=== PATIENT | male | born 1950 | race Caucasian/White ===

== ENCOUNTER 2018-12-05 20:09 | Emergency (ER) | payer OTHER ==
[2018-12-05] MEDS ORDERED: MORPHINE 4 MG/ML SYR ONE (20:32)
[2018-12-05] MEDS ORDERED: ONDANSETRON 4 MG/2 ML VIAL ONE (20:32)
[2018-12-05] MEDS ORDERED: MAGNE/ALUM HYDROXD 30 ML UCUP ONE (20:48)
[2018-12-05] MEDS ORDERED: FENTANYL CITR 100 MCG/2 ML ONE (20:55)
[2018-12-05 20:59] LABS: Absolute Lymphocytes (CBC) 2.5 K/uL (0.7-4.9); Basophils % 1.2 % (0-1.3); Hematocrit 49.8 % (39.6-49.0); Lymphocytes % 22.8 % (15.3-44.8); MPV 8.6 fL (7.6-11.3); RBC Red Blood Cell Count 5.33 M/uL (4.33-5.43)
[2018-12-05 21:00] LABS: Protime INR 0.97
--- NOTE | 2018-12-05 21:09 | RAD REPORT ---
EXAM DESCRIPTION: Ramya Single View12/05/2018 8:54 pm CLINICAL HISTORY: Chest pain COMPARISON: 2009 FINDINGS: The lungs appear clear of acute infiltrate. The heart is mildly enlarged IMPRESSION: No acute abnormalities displayed
[2018-12-05 21:30] LABS: ALT/SGPT 34 U/L (12-78); AST/SGOT 24 U/L (15-37); Albumin 4.3 g/dL (3.4-5.0); Alkaline Phosphatase 113 U/L (45-117); Amylase Level 69 U/L (25-115); BUN Blood Urea Nitrogen 20 mg/dL (7-18); Bicarbonate 23 mmol/L (21-32); Bilirubin Direct 0.2 mg/dL (0-0.2); Bilirubin Total 0.7 mg/dL (0.2-1.0); Glucose Level 109 mg/dL (74-106); Lipase 168 U/L (73-393); Magnesium 2.2 mg/dL (1.8-2.4); NT PRO-BNP 164 pg/mL (<125); Potassium 3.6 mmol/L (3.5-5.1); Protein, Total 7.6 g/dL (6.4-8.2); Sodium Level 141 mmol/L (136-145); Troponin (Emerg Dept Use Only) < 0.02 ng/mL (0.0-0.045)
[2018-12-05] MEDS ORDERED: TAMSULOSIN 0.4 MG SR CAP ONE (22:12)
[2018-12-05] MEDS ORDERED: KETOROLAC 30 MG/ML INJ ONE (22:12)
--- NOTE | 2018-12-05 23:06 | ER ---
Nurse's Notes [facility] Name: Cedric Cortez Age: 68 yrs Sex: Male : 1950 Arrival Date: 12/05/2018 Time: 20:15 Bed 5 Private MD: Diagnosis: Calculus of lower urinary tract, unspecified Presentation: 12/05 20:15 Presenting complaint: Patient states: about two hours ago I got a sudden severe pain in la1 my right flank area. Transition of care: patient was not received from another setting of care. Onset of symptoms was December 05, 2018. Risk Assessment: Do you want to hurt yourself or someone else? Patient reports no desire to harm self or others. Initial Sepsis Screen: Does the patient meet any 2 criteria? No. Patient's initial sepsis screen is negative. Does the patient have a suspected source of infection? No. Patient's initial sepsis screen is negative. Care prior to arrival: None. 20:15 Method Of Arrival: Wheelchair la1 20:15 Acuity: RAJANI 2 la1 Historical: - Allergies: 20:16 No Known Allergies; la1 - PMHx: 20:16 Chronic pain; Hyperlipidemia; Hypertension; bph; la1 - Immunization history:: Adult Immunizations up to date. - Social history:: Smoking status: Patient uses tobacco products, smokes one pack cigarettes per day. - Ebola Screening: : No symptoms or risks identified at this time. Screenin:27 Abuse screen: Denies threats or abuse. Nutritional screening: No deficits noted. jd3 Tuberculosis screening: No symptoms or risk factors identified. Fall Risk Ambulatory Aid- None/Bed Rest/Nurse Assist (0 pts). Gait- Normal/Bed Rest/Wheelchair (0 pts) Mental Status- Oriented to own ability (0 pts). Total Ngo Fall Scale indicates No Risk (0-24 pts). Assessment: 20:20 General: Appears in no apparent distress. uncomfortable, Behavior is calm, cooperative, jd3 appropriate for age. Pain: Complains of pain in right low back Quality of pain is described as sharp. Neuro: Level of Consciousness is awake, alert, obeys commands, Oriented to person, place, time, situation. Cardiovascular: Capillary refill < 3 seconds Patient's skin is warm and dry. Respiratory: Airway is patent Respiratory effort is even, unlabored, Respiratory pattern is regular, symmetrical, Denies cough, shortness of breath. GI: Reports nausea. : No signs and/or symptoms were reported regarding the genitourinary system. EENT: No signs and/or symptoms were reported regarding the EENT system. Derm: Skin is intact, Skin is dry, Skin is normal, Skin temperature is warm. Musculoskeletal: Circulation, motion, and sensation intact. Range of motion: intact in all extremities. Vital Signs: 20:16 Pulse 66; Resp 16; Temp 97.6; Pulse Ox 98% on R/A; Weight 97.98 kg; Height 5 ft. 11 in. la1 (180.34 cm); Pain 10/10; 20:19 BP 200 / 120; la1 22:00 BP 179 / 101; Pulse 59; Resp 15; Pulse Ox 96% on R/A; lp1 23:28 BP 158 / 82; Pulse 62; Resp 18 S; Pulse Ox 100% on R/A; jd3 20:16 Body Mass Index 30.13 (97.98 kg, 180.34 cm) la1 ED Course: 20:15 Patient arrived in ED. ag3 20:16 Triage completed. la1 20:17 Arm band placed on left wrist. la1 20:21 Jc Alva MD is Attending Physician. tw4 20:40 Initial lab(s) drawn, by me, sent to lab. Inserted saline lock: 20 gauge in right fc antecubital area, using aseptic technique. Blood collected. 20:43 Josh Benoit, CISCO is Primary Nurse. jd3 20:54 XRAY Chest (1 view) In Process Unspecified. EDMS 21:11 CT completed. Patient tolerated procedure well. Patient moved back from CT. vm2 21:19 CT Stone Protocol In Process Unspecified. EDMS 23:04 Sanchez Desouza MD is Referral Physician. tw4 23:27 Patient has correct armband on for positive identification. Placed in gown. Bed in low jd3 position. Call light in reach. Side rails up X 1. Adult w/ patient. 23:27 No provider procedures requiring assistance completed. IV discontinued, intact, jd3 bleeding controlled, No redness/swelling at site. Pressure dressing applied. Administered Medications: 20:43 Drug: morphine 4 mg {Note: RASS score of 1..} Route: IVP; Site: right antecubital; jd3 21:00 Follow up: Response: Pain is unchanged, physician notified; RASS: Restless (+1) jd3 20:43 Drug: Zofran 4 mg Route: IVP; Site: right antecubital; jd3 21:00 Follow up: Response: No adverse reaction jd3 20:59 Drug: fentaNYL (PF) 50 mcg {Note: RASS score of 1..} Route: IVP; Site: right jd3 antecubital; 21:45 Follow up: Response: No adverse reaction; RASS: Alert and Calm (0) jd3 22:18 Drug: Flomax 0.4 mg Route: PO; jd3 23:28 Follow up: Response: No adverse reaction jd3 22:18 Drug: TORadol 30 mg Route: IVP; Site: right antecubital; jd3 23:28 Follow up: Response: No adverse reaction jd3 Outcome: 23:05 Discharge ordered by . tw4 23:27 Discharged to home ambulatory, with family. jd3 23:27 Condition: stable 23:27 Discharge instructions given to patient, family, Instructed on discharge instructions, follow up and referral plans. medication usage, Demonstrated understanding of instructions, follow-up care, medications, Prescriptions given X 3. 23:29 Patient left the ED. jd3 Signatures: Dispatcher [employer] EDMS Leonarda Ritter, RN Aspen Cox RN RN lp1 Vega Vela RN RN [email or web address] Karla Avina Jonathon, RN RN jd3 Jc Alva MD MD tw4 Mily Orozco ag3 Corrections: (The following items were deleted from the chart) 21:00 20:59 fentaNYL (PF) 50 mcg IVP in right antecubital jd3 jd3
--- NOTE | 2018-12-05 23:06 | EDPHYS ---
Physician Documentation [facility] Name: Cedric Cortez Age: 68 yrs Sex: Male : 1950 Arrival Date: 12/05/2018 Time: 20:15 Bed 5 Private MD: ED Physician Jc Alva HPI: 12/05 20:41 This 68 yrs old Male presents to ER via Wheelchair with complaints of Back tw4 Pain. 20:41 The patient complains of pain in the right low back. The pain radiates to the right low tw4 back. Onset: The symptoms/episode began/occurred today. Modifying factors: The symptoms are alleviated by nothing. the symptoms are aggravated by nothing. Severity of pain: At its worst the pain was moderate in the emergency department the pain is unchanged. The patient has not experienced similar symptoms in the past. Historical: - Allergies: 20:16 No Known Allergies; la1 - PMHx: 20:16 Chronic pain; Hyperlipidemia; Hypertension; bph; la1 - Immunization history:: Adult Immunizations up to date. - Social history:: Smoking status: Patient uses tobacco products, smokes one pack cigarettes per day. - Ebola Screening: : No symptoms or risks identified at this time. ROS: 20:41 Constitutional: Negative for fever, chills, and weight loss, Eyes: Negative for injury, tw4 pain, redness, and discharge, Cardiovascular: Negative for chest pain, palpitations, and edema, Respiratory: Negative for shortness of breath, cough, wheezing, and pleuritic chest pain, Abdomen/GI: Negative for abdominal pain, nausea, vomiting, diarrhea, and constipation, MS/Extremity: Negative for injury and deformity, Skin: Negative for injury, rash, and discoloration, Neuro: Negative for headache, weakness, numbness, tingling, and seizure. 20:41 Back: Positive for pain at rest, flank pain, on the right, Negative for injury or acute deformity, decreased range of motion, radiated pain. Exam: 20:41 Head/Face: Normocephalic, atraumatic. Chest/axilla: Normal chest wall appearance and tw4 motion. Nontender with no deformity. No lesions are appreciated. Cardiovascular: Regular rate and rhythm with a normal S1 and S2. No gallops, murmurs, or rubs. Normal PMI, no JVD. No pulse deficits. Respiratory: Lungs have equal breath sounds bilaterally, clear to auscultation and percussion. No rales, rhonchi or wheezes noted. No increased work of breathing, no retractions or nasal flaring. 20:41 Constitutional: The patient appears in obvious distress, moderately distressed, in obvious pain, uncomfortable. 20:41 Back: CVA tenderness, that is moderate, is noted on the right. Vital Signs: 20:16 Pulse 66; Resp 16; Temp 97.6; Pulse Ox 98% on R/A; Weight 97.98 kg; Height 5 ft. 11 in. la1 (180.34 cm); Pain 10/10; 20:19 BP 200 / 120; la1 22:00 BP 179 / 101; Pulse 59; Resp 15; Pulse Ox 96% on R/A; lp1 23:28 BP 158 / 82; Pulse 62; Resp 18 S; Pulse Ox 100% on R/A; jd3 20:16 Body Mass Index 30.13 (97.98 kg, 180.34 cm) la1 MDM: 20:22 Patient medically screened. tw4 23:02 Differential diagnosis: nephrolithiasis, pyelonephritis. Data reviewed: vital signs, tw4 nurses notes. Data interpreted: Pulse oximetry: Interpretation: normal. Counseling: I had a detailed discussion with the patient and/or guardian regarding: the historical points, exam findings, and any diagnostic results supporting the discharge/admit diagnosis, lab results, radiology results. Medication response: Toradol relieved patient's pain. The symptoms have resolved. Response to treatment: and as a result, I will discharge patient, administer pain medication, ibuprofen, tylenol #3. Special discussion: I discussed with the patient/guardian in detail that at this point there is no indication for admission to the hospital. It is understood, however, that if the symptoms persist or worsen the patient needs to return immediately for re-evaluation. 12/05 20:24 Order name: Basic Metabolic Panel tw4 12/05 20:24 Order name: CBC with Diff 12/05 20:24 Order name: LFT's 12/05 20:24 Order name: Magnesium 12/05 20:24 Order name: NT PRO-BNP 12/05 20:24 Order name: PT-INR 12/05 20:24 Order name: Troponin (emerg Dept Use Only) tw4 12/05 20:24 Order name: Lipase tw4 12/05 20:24 Order name: Amylase, Serum tw4 12/05 20:25 Order name: Basic Metabolic Panel EDKY 12/05 20:25 Order name: CBC with Automated Diff EDMS 12/05 20:25 Order name: Liver (Hepatic) Function EDKY 12/05 20:25 Order name: Magnesium EDKY 12/05 20:24 Order name: XRAY Chest (1 view) tw4 12/05 20:24 Order name: EKG; Complete Time: 20:26 tw4 12/05 20:24 Order name: Cardiac monitoring; Complete Time: 20:44 tw4 12/05 20:24 Order name: EKG - Nurse/Tech; Complete Time: 20:44 tw4 12/05 20:24 Order name: IV Saline Lock; Complete Time: 20:44 tw4 12/05 20:24 Order name: Labs collected and sent; Complete Time: 20:44 tw4 12/05 20:24 Order name: O2 Per Protocol; Complete Time: 20:44 tw4 12/05 20:24 Order name: O2 Sat Monitoring; Complete Time: 20:44 tw4 12/05 20:24 Order name: CT Stone Protocol tw4 EC/16 06:33 Rate is 63 beats/min. Rhythm is regular, Sinus Rhythm with PACs. QRS [place] is Normal. [place] tw4 interval is normal. QRS interval is normal. QT interval is normal. No Q waves. T waves are Inverted in lead III. T waves are Flattened in lead aVF. No ST changes noted. Clinical impression: NSR w/ Non-specific ST/T Changes. Interpreted by me. Administered Medications: 12/05 20:43 Drug: morphine 4 mg {Note: RASS score of 1..} Route: IVP; Site: right antecubital; jd3 21:00 Follow up: Response: Pain is unchanged, physician notified; RASS: Restless (+1) jd3 20:43 Drug: Zofran 4 mg Route: IVP; Site: right antecubital; jd3 21:00 Follow up: Response: No adverse reaction jd3 20:59 Drug: fentaNYL (PF) 50 mcg {Note: RASS score of 1..} Route: IVP; Site: right jd3 antecubital; 21:45 Follow up: Response: No adverse reaction; RASS: Alert and Calm (0) jd3 22:18 Drug: Flomax 0.4 mg Route: PO; jd3 23:28 Follow up: Response: No adverse reaction jd3 22:18 Drug: TORadol 30 mg Route: IVP; Site: right antecubital; jd3 23:28 Follow up: Response: No adverse reaction jd3 Disposition: 12/05/18 23:05 Discharged to Home. Impression: Calculus of lower urinary tract, unspecified. - Condition is Stable. - Discharge Instructions: Kidney Stones, [id number]. - Prescriptions for Ibuprofen 800 mg Oral Tablet - take 1 tablet by ORAL route every 8 hours As needed take with food; 30 tablet. Tylenol- Codeine #3 300-30 mg Oral Tablet - take 2 tablet by ORAL route every 6 hours As needed; 6 tablet. Flomax 0.4 mg Oral Capsule, Sust. Release 24 hr - take 1 capsule by ORAL route once daily 1/2 hour following the same meal each day; 30 capsule. - Medication Reconciliation Form, Thank You Letter, Antibiotic Education, Prescription Opioid Use form. - Follow up: Sanchez Desouza MD; When: Upon discharge from the Emergency Department; Reason: If symptoms return, Recheck today's complaints, Continuance of care. - Problem is new. - Symptoms have improved. Signatures: Dispatcher [employer] EDMS Vega Vela RN RN laJosh Villanueva RN RN [email or web address] Jc Alva MD MD tw4 Corrections: (The following items were deleted from the chart) 23:29 23:05 12/05/2018 23:05 Discharged to Home. Impression: Calculus of lower urinary tract, jd3 unspecified. Condition is Stable. Forms are Medication Reconciliation Form, Thank You Letter, Antibiotic Education, Prescription Opioid Use. Follow up: Sanchez Desouza; When: Upon discharge from the Emergency Department; Reason: If symptoms return, Recheck today's complaints, Continuance of care. Problem is new. Symptoms have improved. tw4
[2018-12-05 23:47] VITALS: TEMP 97.6
[2018-12-06 00:33] VITALS: BP 158/82; O2SAT 100
--- NOTE | 2018-12-06 09:04 | RAD REPORT ---
EXAM DESCRIPTION: CT - Stone Protocol - 12/06/2018 3:31 am CLINICAL HISTORY: 68 years Male FLANK PAIN COMPARISON: May 09, 2016. TECHNIQUE: Images were obtained in axial, sagittal, and coronal planes. No oral or intravenous contr ast was administered. This exam was performed according to our departmental dose-optimization program which includes use of Automated Exposure Control, adjustment of the mA and/or kV according to patient size and/or use of i terative reconstruction technique. FINDINGS: 4 mm calculus proximal right ureter with associated mild to moderate right hydronephrosis and hydroureter. Moderate right perinephric stranding. Additional punctate nonobstructing calcificati ons right kidney. Suspected right renal cyst. No obstructing renal calcifications on left. Punctate nonobstructing calcifications left kidney. No h ydronephrosis on left. Left renal cyst. Renal parenchymal thinning mid left kidney. Bilateral inguinal hernias which contain only mesenteric fat. Appendix within normal limits. Mucosal thickening involving colon. No bowel obstruction, or perforati on. No abnormality involving the liver, spleen, pancreas, gallbladder, or adrenal glands bilaterally. Ret ained food and debris within the stomach. Calcification abdominal aorta with no dilatation seen. No adenopathy or abnormal fluid collections se en. Small hiatal hernia. Chronic changes lower lungs bilaterally. Compression fracture T9 vertebral body again identified. No acute osseous abnormality. IMPRESSION: 4 mm calculus proximal right ureter with associated mild to moderate right hydronephrosi s and mild right hydroureter. Incomplete distention colon versus reactive colitis. Electronically signed by: Magui Chase MD 12/05/2018 9:33 PM CDT Due to temporary technical issues with the PACS/Fluency reporting system, reports are being signed by the in house radiologist as a courtesy to ensure prompt reporting. The interpreting radiologist is f ully responsible for the content of the report.
--- NOTE | 2018-12-06 11:47 | EKG ---
Test Date: 2018-12-05 Test Time: 20:29:09 Manager Care: CEASAR MEASUREMENT RESULTS: Intervals: Rate: 63 MN: 150 QRSD: 94 QT: 422 QTc: 431 [place]: P: -11 MN: 150 QRS: -51 T: -16 INTERPRETIVE STATEMENTS: Sinus rhythm with premature atrial complexes Left anterior fascicular block Moderate voltage criteria for LVH, may be normal variant Nonspecific ST abnormality Abnormal ECG Compared to ECG 09/24/2009 09:36:57 Atrial premature complex(es) now present Left anterior fascicular block now present Left-axis deviation no longer present ST (T wave) deviation still present Electronically Signed On 12-06-18 11:45:01 CDT by Jeremy Holliday
== END 2018-12-05 23:29 | disposition home or self-care (01) ==
LOC: ER 20:09
DX: N21.9 Calculus of lower urinary tract, unspecified (principal); F17.210 Nicotine dependence, cigarettes, uncomplicated; I10 Essential (primary) hypertension
CPT/HCPCS: 93005; 85025; 80048; 36415; 82150; 83735; 85610; 80076; 84484; 83690; 83880; 76377; 74176; 71045; 96375; 96374; 99284; J3010; J2405

== ENCOUNTER 2018-12-16 08:19 | Emergency (ER) | payer OTHER ==
[2018-12-16] MEDS ORDERED: NA CHLORIDE 0.9% 1,000 ML ONE ×2 (08:39→09:45)
[2018-12-16] MEDS ORDERED: KETOROLAC 30 MG/ML INJ ONE (08:59)
[2018-12-16] MEDS ORDERED: ONDANSETRON 4 MG/2 ML VIAL ONE (08:59)
[2018-12-16] MEDS ORDERED: MORPHINE 4 MG/ML SYR ONE (08:59)
[2018-12-16 09:07] LABS: Absolute Lymphocytes (CBC) 1.6 K/uL (0.7-4.9); Basophils % 0.8 % (0-1.3); Hematocrit 48.9 % (39.6-49.0); Lymphocytes % 13.6 % (15.3-44.8); MPV 8.6 fL (7.6-11.3); RBC Red Blood Cell Count 5.25 M/uL (4.33-5.43)
--- NOTE | 2018-12-16 09:11 | RAD REPORT ---
EXAM DESCRIPTION: CT - Stone Protocol - 12/16/2018 9:02 am CLINICAL HISTORY: Flank pain. FLANK PAIN COMPARISON: Stone Protocol dated 12/05/2018 TECHNIQUE: Axial images were obtained without oral or IV contrast. Lack of contrast limits solid org an and vascular assessment. The [id number] spans the entirety of the system partially obscuring uppermost abdomen and lung bases. Coronal reformatted images were obtained and reviewed. All CT scans are performed using dose optimization technique as appropriate and may include automated exposure control or mA/KV adjustment according to patient size. FINDINGS: The lower lung griffith are clear. Imaged portions of the liver and spleen show no suspicious findings on non-contrast imaging. The panc reas and adrenal glands are normal. No pathologic lymphadenopathy in the abdomen or pelvis. 6 mm stone (840 HU) at the right UVJ is present resulting in moderate right hydronephrosis and hydrou reter. Tiny punctate calculus also suspected inferior calyx right kidney. No left-sided stone or hydr onephrosis. Exophytic left renal cyst measuring 28 mm. No bowel obstruction, free air, free fluid or abscess. Normal appendix noted.Small fat containing andree ateral inguinal hernias. No significant bony abnormality. IMPRESSION: 6 mm stone right UVJ resulting in moderate right hydronephrosis.
[2018-12-16 09:30] LABS: Bilirubin Direct 0.1 mg/dL (0-0.2); Bilirubin Total 0.4 mg/dL (0.2-1.0); Protein, Total 7.3 g/dL (6.4-8.2)
[2018-12-16 09:31] LABS: Potassium 4.2 mmol/L (3.5-5.1)
[2018-12-16] MEDS ORDERED: CEFTRIAXONE/SWI 1gm 1 GM/10 ML SYR ONE (09:45)
[2018-12-16] MEDS ORDERED: TAMSULOSIN 0.4 MG SR CAP ONE (09:45)
[2018-12-16 09:55] LABS: Urine Blood 2+ (NEG); Urine Glucose NEGATIVE (NEG); Urine Protein NEGATIVE (NEG)
--- NOTE | 2018-12-16 10:52 | EDPHYS ---
Physician Documentation [facility] Name: Cedric Cortez Age: 68 yrs Sex: Male : 1950 Arrival Date: 12/16/2018 Time: 08:22 Bed 5 Private MD: ED Physician Shane Gamino HPI: 12/16 08:56 This 68 yrs old Male presents to ER via Ambulatory with complaints of Flank josefina Pain. 08:56 The patient complains of pain in the right mid back and right low back. The pain josefina radiates to the right mid back and right low back. Onset: The symptoms/episode began/occurred 2 day(s) ago. Modifying factors: The symptoms are alleviated by nothing. the symptoms are aggravated by nothing. Associated signs and symptoms: The patient has no apparent associated signs or symptoms. Severity of pain: At its worst the pain was moderate in the emergency department the pain is unchanged. The patient has experienced similar episodes in the past, a few times. Historical: - Allergies: 08:43 No Known Drug Allergies; tw2 - Home Meds: 08:43 Tylenol #3 Oral for Pain [Active]; Flomax 0.4 mg Oral cp24 1 cap once daily [Active]; tw2 amoxicillin 500 mg Oral tab 1 tab every 12 hours [Active]; gabapentin 300 mg oral cap 1 cap 3 times per day [Active]; finasteride 5 mg oral tab 1 tab once daily [Active]; amlodipine 10 mg tab 1 tab once daily [Active]; metoprolol tartrate 50 mg Oral tab 1 tab 2 times per day [Active]; cyclobenzaprine 5 mg Oral tab 1 tab 3 times per day [Active]; ranitidine HCl 150 mg oral cap [Active]; bisacodyl 5 mg Oral TbEC 1 tab [Active]; donepezil 10 mg oral tab 1 tab once daily [Active]; sildenafil 20 mg oral tab 1 tab 3 times per day [Active]; metformin 500 mg Oral Tb24 1 tab 2 times per day [Active]; meloxicam 15 mg oral tab 1 tab once daily [Active]; lisinopril 10 mg Oral tab 1 tab once daily [Active]; - PMHx: 08:43 Chronic pain; Hyperlipidemia; Hypertension; BPH; tw2 - Immunization history:: Adult Immunizations Adult Immunizations. - Social history:: Smoking status: Smoking status: . - Ebola Screening: : Patient denies travel to an Ebola-affected area in the 21 days before illness onset Patient denies travel to an Ebola-affected area in the 21 days before illness onset. - Family history:: not pertinent. ROS: 08:56 Constitutional: Negative for fever, chills, and weight loss, Eyes: Negative for injury, josefina pain, redness, and discharge, ENT: Negative for injury, pain, and discharge, Neck: Negative for injury, pain, and swelling, Cardiovascular: Negative for chest pain, palpitations, and edema, Respiratory: Negative for shortness of breath, cough, wheezing, and pleuritic chest pain, Back: Negative for injury and pain, : Negative for injury, bleeding, discharge, and swelling, MS/Extremity: Negative for injury and deformity, Skin: Negative for injury, rash, and discoloration, Neuro: Negative for headache, weakness, numbness, tingling, and seizure, Psych: Negative for depression, anxiety, suicide ideation, homicidal ideation, and hallucinations, Allergy/Immunology: Negative for hives, rash, and allergies, Endocrine: Negative for neck swelling, polydipsia, polyuria, polyphagia, and marked weight changes, Hematologic/Lymphatic: Negative for swollen nodes, abnormal bleeding, and unusual bruising. 08:56 Abdomen/GI: Positive for abdominal pain, of the anterior aspect of right lateral abdomen, posterior aspect of right lateral abdomen, right upper quadrant and right lower quadrant. Exam: 08:56 Constitutional: This is a well developed, well nourished patient who is awake, alert, josefina and in no acute distress. Head/Face: Normocephalic, atraumatic. Eyes: Pupils equal round and reactive to light, extra-ocular motions intact. Lids and lashes normal. Conjunctiva and sclera are non-icteric and not injected. Cornea within normal limits. Periorbital areas with no swelling, redness, or edema. ENT: Nares patent. No nasal discharge, no septal abnormalities noted. Tympanic membranes are normal and external auditory canals are clear. Oropharynx with no redness, swelling, or masses, exudates, or evidence of obstruction, uvula midline. Mucous membranes moist. Neck: Trachea midline, no thyromegaly or masses palpated, and no cervical lymphadenopathy. Supple, full range of motion without nuchal rigidity, or vertebral point tenderness. No Meningismus. Chest/axilla: Normal chest wall appearance and motion. Nontender with no deformity. No lesions are appreciated. Cardiovascular: Regular rate and rhythm with a normal S1 and S2. No gallops, murmurs, or rubs. Normal PMI, no JVD. No pulse deficits. Respiratory: Lungs have equal breath sounds bilaterally, clear to auscultation and percussion. No rales, rhonchi or wheezes noted. No increased work of breathing, no retractions or nasal flaring. Male : Normal genitalia with no discharge or lesions. Skin: Warm, dry with normal turgor. Normal color with no rashes, no lesions, and no evidence of cellulitis. MS/ Extremity: Pulses equal, no cyanosis. Neurovascular intact. Full, normal range of motion. Neuro: Awake and alert, GCS 15, oriented to person, place, time, and situation. Cranial nerves II-XII grossly intact. Motor strength 5/5 in all extremities. Sensory grossly intact. Cerebellar exam normal. Normal gait. Psych: Awake, alert, with orientation to person, place and time. Behavior, mood, and affect are within normal limits. 08:56 Abdomen/GI: Inspection: distension, Bowel sounds: normal, Palpation: mild abdominal tenderness, Liver: no appreciated palpable abnormalities, Hernia: not appreciated. Vital Signs: 08:39 BP 168 / 98; Pulse 65; Resp 17; Temp 98.1(O); Pulse Ox 95% on R/A; Pain 8/10; tw2 09:32 BP 134 / 78; Pulse 65; Resp 17; Pulse Ox 95% on R/A; Pain 6/10; tw2 10:40 BP 141 / 82; Pulse 61; Resp 17; Pulse Ox 97% on R/A; Pain 5/10; tw2 11:24 BP 137 / 85; Pulse 61; Resp 17; Pulse Ox 95% on R/A; Pain 5/10; tw2 MDM: 08:36 Patient medically screened. [facility] 08:58 Data reviewed: vital signs, nurses notes, lab test result(s), radiologic studies, CT josefina scan. 12/16 08:37 Order name: Basic Metabolic Panel; Complete Time: 09:33 [facility] 12/16 08:37 Order name: CBC with Diff; Complete Time: 09:33 [facility] 12/16 08:37 Order name: Creatinine for Radiology; Complete Time: 09:33 [facility] 12/16 08:37 Order name: Hepatic Function; Complete Time: 09:33 [facility] 12/16 08:37 Order name: Lipase; Complete Time: 09:33 [facility] 12/16 08:37 Order name: Urine Culture [facility] 12/16 08:37 Order name: CT Stone Protocol; Complete Time: 09:33 [facility] 12/16 09:19 Order name: Urine Dipstick--Ancillary (enter results); Complete Time: 10:18 em1 12/16 10:33 Order name: Abdomen 1 View (KUB) XRAY [facility] 12/16 08:37 Order name: IV Saline Lock; Complete Time: 08:52 [facility] 12/16 08:37 Order name: Labs collected and sent; Complete Time: 08:52 [facility] 12/16 08:37 Order name: Urine Dipstick-Ancillary (obtain specimen); Complete Time: 08:52 [facility] Administered Medications: 08:51 Drug: NS 0.9% 1000 ml Route: IV; Rate: 1 bolus; Site: right antecubital; tw2 09:53 Follow up: Response: No adverse reaction; IV Status: Completed infusion; IV Intake: tw2 1000ml 09:04 Drug: Zofran 4 mg Route: IVP; Site: right antecubital; tw2 09:34 Follow up: Response: No adverse reaction; Nausea is decreased tw2 09:06 Drug: TORadol 30 mg Route: IVP; Site: right antecubital; tw2 09:34 Follow up: Response: No adverse reaction; Pain is unchanged, physician notified; RASS: tw2 Alert and Calm (0) 09:08 Drug: morphine 4 mg {Note: RASS 0.} Route: IVP; Site: right antecubital; tw2 09:34 Follow up: Response: No adverse reaction; Pain is decreased; RASS: Alert and Calm (0) tw2 09:50 Drug: Rocephin 1 grams Route: IV; Rate: per protocol; Site: right antecubital; tw2 09:55 Follow up: Response: No adverse reaction; IV Status: Completed infusion 2 09:52 Drug: Flomax 0.4 mg Route: PO; tw2 09:52 Follow up: Response: No adverse reaction 2 09:52 Drug: NS 0.9% 1000 ml Route: IV; Rate: 1 bolus; Site: right antecubital; tw2 10:41 Follow up: IV Status: Completed infusion; IV Intake: 1000ml tw2 Disposition: 12/16/18 10:34 Discharged to Home. Impression: Hydronephrosis with renal and ureteral calculous obstruction, Unspecified kidney failure - insufficent. - Condition is Stable. - Discharge Instructions: Kidney Stones, Kidney Stones, [id number], Hydronephrosis, Chronic Kidney Disease, Adult, [id number], Dietary Guidelines to Help Prevent Kidney Stones. - Prescriptions for Cipro 250 mg Oral Tablet - take 2 tablet by ORAL route every 12 hours; 20 tablet. Tylenol- Codeine #3 300-30 mg Oral Tablet - take 2 tablet by ORAL route every 6 hours As needed; 30 tablet. Zofran 4 mg Oral Tablet - take 1 tablet by ORAL route every 12 hours As needed; 20 tablet. Flomax 0.4 mg Oral Capsule, Sust. Release 24 hr - take 1 capsule by ORAL route once daily 1/2 hour following the same meal each day; 30 capsule. - Medication Reconciliation Form, Thank You Letter, Antibiotic Education, Prescription Opioid Use form. - Follow up: Private Physician; When: 2 - 3 days; Reason: Recheck today's complaints, Continuance of care, Re-evaluation by your physician. Follow up: Sanchez Desouza; When: 2 - 3 days; Reason: Recheck today's complaints, Re-evaluation by your physician. - Problem is new. - Symptoms have improved. Signatures: Dispatcher [employer] EDHI Shane Gamino MD MD cha Wise, Tara, RN RN tw2 Corrections: (The following items were deleted from the chart) 11:31 10:34 12/16/2018 10:34 Discharged to Home. Impression: Hydronephrosis with renal and tw2 ureteral calculous obstruction; Unspecified kidney failure - insufficent. Condition is Stable. Discharge Instructions: Kidney Stones, Kidney Stones, Bqje-[id number], Hydronephrosis, Chronic Kidney Disease, Adult, Bahw-ly-Pwmd, Dietary Guidelines to Help Prevent Kidney Stones. Prescriptions for Cipro 250 mg Oral Tablet - take 2 tablet by ORAL route every 12 hours; 20 tablet, Tylenol-Codeine #3 300-30 mg Oral Tablet - take 2 tablet by ORAL route every 6 hours As needed; 30 tablet, Zofran 4 mg Oral Tablet - take 1 tablet by ORAL route every 12 hours As needed; 20 tablet, Flomax 0.4 mg Oral Capsule, Sust. Release 24 hr - take 1 capsule by ORAL route once daily 1/2 hour following the same meal each day; 30 capsule. and Forms are Medication Reconciliation Form, Thank You Letter, Antibiotic Education, Prescription Opioid Use. Follow up: Private Physician; When: 2 - 3 days; Reason: Recheck today's complaints, Continuance of care, Re-evaluation by your physician. Follow up: Sanchez Desouza; When: 2 - 3 days; Reason: Recheck today's complaints, Re-evaluation by your physician. Problem is new. Symptoms have improved. josefina
--- NOTE | 2018-12-16 10:52 | ER ---
Nurse's Notes [facility] Name: Cedric Cortez Age: 68 yrs Sex: Male : 1950 Arrival Date: 12/16/2018 Time: 08:22 Bed 5 Private MD: Diagnosis: Hydronephrosis with renal and ureteral calculous obstruction;Unspecified kidney failure-insufficent Presentation: 12/16 08:38 Presenting complaint: Patient states: i woke up with pain in my right flank, i was here tw2 a week ago with kidney stones i dont know if they have reoccurred but i am having pain and i feel like i cant urinate. Transition of care: patient was not received from another setting of care. Onset of symptoms was December 16, 2018. Risk Assessment: Do you want to hurt yourself or someone else? Patient reports no desire to harm self or others. Initial Sepsis Screen: Does the patient meet any 2 criteria? No. Patient's initial sepsis screen is negative. Does the patient have a suspected source of infection? No. Patient's initial sepsis screen is negative. Care prior to arrival: None. 08:38 Method Of Arrival: Ambulatory tw2 08:38 Acuity: RAJANI 3 tw2 Triage Assessment: 08:38 General: Appears in no apparent distress. Behavior is calm, cooperative, appropriate tw2 for age. Pain: Complains of pain in right low back. Pain:. Historical: - Allergies: 08:43 No Known Drug Allergies; tw2 - Home Meds: 08:43 Tylenol #3 Oral for Pain [Active]; Flomax 0.4 mg Oral cp24 1 cap once daily [Active]; tw2 amoxicillin 500 mg Oral tab 1 tab every 12 hours [Active]; gabapentin 300 mg oral cap 1 cap 3 times per day [Active]; finasteride 5 mg oral tab 1 tab once daily [Active]; amlodipine 10 mg tab 1 tab once daily [Active]; metoprolol tartrate 50 mg Oral tab 1 tab 2 times per day [Active]; cyclobenzaprine 5 mg Oral tab 1 tab 3 times per day [Active]; ranitidine HCl 150 mg oral cap [Active]; bisacodyl 5 mg Oral TbEC 1 tab [Active]; donepezil 10 mg oral tab 1 tab once daily [Active]; sildenafil 20 mg oral tab 1 tab 3 times per day [Active]; metformin 500 mg Oral Tb24 1 tab 2 times per day [Active]; meloxicam 15 mg oral tab 1 tab once daily [Active]; lisinopril 10 mg Oral tab 1 tab once daily [Active]; - PMHx: 08:43 Chronic pain; Hyperlipidemia; Hypertension; BPH; tw2 - Immunization history:: Adult Immunizations Adult Immunizations. - Social history:: Smoking status: Smoking status: . - Ebola Screening: : Patient denies travel to an Ebola-affected area in the 21 days before illness onset Patient denies travel to an Ebola-affected area in the 21 days before illness onset. - Family history:: not pertinent. Screenin:52 Abuse screen: Denies threats or abuse. Nutritional screening: No deficits noted. tw2 Tuberculosis screening: No symptoms or risk factors identified. Fall Risk None identified. Assessment: 08:35 General: Appears in no apparent distress. Behavior is calm, cooperative, appropriate tw2 for age. 09:06 Reassessment: wheeled to ME;. 09:31 Reassessment: Patient appears in no apparent distress at this time. Patient and/or tw2 family updated on plan of care and expected duration. Pain level reassessed. Patient is alert, oriented x 3, equal unlabored respirations, skin warm/dry/pink. Patient states feeling better. Patient states symptoms have improved. 09:32 Pain: Complains of pain in right low back. Neuro: Level of Consciousness is awake, tw2 alert, obeys commands, Oriented to person, place, time, situation. Cardiovascular: Heart tones S1 S2 Patient's skin is warm and dry. Respiratory: Airway is patent Respiratory effort is even, unlabored, Respiratory pattern is regular, symmetrical, Breath sounds are clear bilaterally. GI: Abdomen is round non-distended, Bowel sounds present X 4 quads. : No signs and/or symptoms were reported regarding the genitourinary system. EENT: No signs and/or symptoms were reported regarding the EENT system. Derm: Skin is intact, is healthy with good turgor, Skin is dry, Skin temperature is warm. Musculoskeletal: Range of motion: intact in all extremities. 10:40 Reassessment: Patient appears in no apparent distress at this time. Patient and/or tw2 family updated on plan of care and expected duration. Pain level reassessed. Patient is alert, oriented x 3, equal unlabored respirations, skin warm/dry/pink. Patient states feeling better. Patient states symptoms have improved. 11:24 Reassessment: Patient appears in no apparent distress at this time. Patient and/or tw2 family updated on plan of care and expected duration. Pain level reassessed. Patient is alert, oriented x 3, equal unlabored respirations, skin warm/dry/pink. Patient states feeling better. Patient states symptoms have improved. Vital Signs: 08:39 BP 168 / 98; Pulse 65; Resp 17; Temp 98.1(O); Pulse Ox 95% on R/A; Pain 8/10; tw2 09:32 BP 134 / 78; Pulse 65; Resp 17; Pulse Ox 95% on R/A; Pain 6/10; tw2 10:40 BP 141 / 82; Pulse 61; Resp 17; Pulse Ox 97% on R/A; Pain 5/10; tw2 11:24 BP 137 / 85; Pulse 61; Resp 17; Pulse Ox 95% on R/A; Pain 5/10; tw2 ED Course: 08:22 Patient arrived in ED. as 08:36 Shane Gamino MD is Attending Physician. josefina 08:38 Linda Bautista RN is Primary Nurse. tw2 08:38 Bed in low position. Call light in reach. Adult w/ patient. Pulse ox on. NIBP on. tw2 08:39 Triage completed. tw2 08:39 Arm band placed on. tw2 08:52 Inserted saline lock: 22 gauge in right antecubital area, using aseptic technique. tw2 Blood collected. 08:52 Urine Culture Sent. tw2 09:03 CT Stone Protocol In Process Unspecified. EDMS 10:33 Sanchez Desouza MD is Referral Physician. josefina 10:39 Awaiting: KUB at this time PRIOR to discharge. tw2 11:22 Abdomen 1 View (KUB) XRAY In Process Unspecified. EDMS 11:23 Awaiting radiology results. Awaiting: awaiting xray image results PRIOR to discharge. tw2 11:23 No provider procedures requiring assistance completed. IV discontinued, intact, tw2 bleeding controlled, No redness/swelling at site. Pressure dressing applied. Administered Medications: 08:51 Drug: NS 0.9% 1000 ml Route: IV; Rate: 1 bolus; Site: right antecubital; tw2 09:53 Follow up: Response: No adverse reaction; IV Status: Completed infusion; IV Intake: tw2 1000ml 09:04 Drug: Zofran 4 mg Route: IVP; Site: right antecubital; tw2 09:34 Follow up: Response: No adverse reaction; Nausea is decreased tw2 09:06 Drug: TORadol 30 mg Route: IVP; Site: right antecubital; tw2 09:34 Follow up: Response: No adverse reaction; Pain is unchanged, physician notified; RASS: tw2 Alert and Calm (0) 09:08 Drug: morphine 4 mg {Note: RASS 0.} Route: IVP; Site: right antecubital; tw2 09:34 Follow up: Response: No adverse reaction; Pain is decreased; RASS: Alert and Calm (0) tw2 09:50 Drug: Rocephin 1 grams Route: IV; Rate: per protocol; Site: right antecubital; tw2 09:55 Follow up: Response: No adverse reaction; IV Status: Completed infusion tw2 09:52 Drug: Flomax 0.4 mg Route: PO; tw2 09:52 Follow up: Response: No adverse reaction tw2 09:52 Drug: NS 0.9% 1000 ml Route: IV; Rate: 1 bolus; Site: right antecubital; tw2 10:41 Follow up: IV Status: Completed infusion; IV Intake: 1000ml tw2 Intake: 09:53 IV: 1000ml; Total: 1000ml. tw2 10:41 IV: 1000ml; Total: 2000ml. tw2 Outcome: 10:34 Discharge ordered by MD. rocha 11:25 Discharged to home ambulatory, with significant other. tw2 11:25 Condition: stable 11:25 Discharge instructions given to patient, significant other, Instructed on discharge instructions, follow up and referral plans. no drinking with medication, no driving heavy equipment, medication usage, Demonstrated understanding of instructions, follow-up care, medications, Prescriptions given X 4. 11:31 Patient left the ED. tw2 Signatures: Dispatcher [employer] EDMS Shane Gamino MD MD cha Martinez, Amelia as Joaquin, Henry, RN RN hj Wise, Tara, RN RN tw2 Corrections: (The following items were deleted from the chart) 09:33 08:35 General: Appears in no apparent distress. Behavior is calm, cooperative, tw2 appropriate for age, tw2 11:25 11:24 BP 137 / 85; Pulse 61bpm; Resp 17bpm; Pulse Ox 95% RA; Pain /10; tw2 tw2
--- NOTE | 2018-12-16 11:34 | RAD REPORT ---
EXAM DESCRIPTION: RAD - Abdomen 1 View (KUB) - 12/16/2018 11:21 am CLINICAL HISTORY: ABD PAIN Kidney stone history COMPARISON: Stone Protocol dated 12/16/2018 FINDINGS: Obstructing distal right ureteral calculus detailed on the December 16 CT study is still pre sent in the same location near the UVJ. KUB shows a small phlebolith more inferior and lateral to the obstructing calculus. No renal calculi seen. No other evidence for ureteral calculus. No obstruction, free air or pneumatosis. Bowel gas pattern is nonspecific. No significant bony findings IMPRESSION: No change in size or positioning of the previously detailed distal ureteral calculus det fermín December [address] CT imaging.
[2018-12-16 11:40] VITALS: TEMP 98.1
[2018-12-16 11:44] VITALS: BP 137/85; O2SAT 95
== END 2018-12-16 11:31 | disposition home or self-care (01) ==
LOC: ER 08:19
DX: N13.2 Hydronephrosis with renal and ureteral calculous obstruction (principal); N19 Unspecified kidney failure; I10 Essential (primary) hypertension; E78.5 Hyperlipidemia, unspecified
CPT/HCPCS: 96361; 87088; 85025; 87086; 80048; 36415; 80076; 81003; 83690; 76377; 74176; 74018; 96375; 96374; 99284; J0696; J7030 ×2; J2405

== ENCOUNTER 2020-09-30 22:04 | Emergency (ER) | payer OTHER ==
[2020-10-01] MEDS ORDERED: DIAZEPAM 5 MG TABLET ONE (01:04)
[2020-10-01] MEDS ORDERED: dexAMETHasone 10 MG/ML VIAL ONE (01:04)
[2020-10-01] MEDS ORDERED: MORPHINE 4 MG/ML SYR ONE (01:04)
[2020-10-01] MEDS ORDERED: ONDANSETRON 4 MG/2 ML VIAL ONE (01:05)
[2020-10-01] MEDS ORDERED: NA CHLORIDE 0.9% 1,000 ML ONE (01:05)
[2020-10-01] MEDS ORDERED: KETOROLAC 30 MG/ML INJ ONE (01:05)
[2020-10-01 01:20] LABS: Absolute Lymphocytes (CBC) 2.6 K/uL (0.7-4.9); Basophils % 1.2 % (0-1.3); Hematocrit 49.2 % (39.6-49.0); Lymphocytes % 31.3 % (15.3-44.8); RBC Red Blood Cell Count 5.24 M/uL (4.33-5.43)
[2020-10-01 01:32] LABS: ALT/SGPT 54 U/L (12-78); AST/SGOT 23 U/L (15-37); Alkaline Phosphatase 109 U/L (45-117); BUN Blood Urea Nitrogen 21 mg/dL (7-18); Bicarbonate 26 mmol/L (21-32); Bilirubin Total 0.4 mg/dL (0.2-1.0); Glucose Level 155 mg/dL (74-106); Potassium 3.5 mmol/L (3.5-5.1); Protein, Total 7.5 g/dL (6.4-8.2); Sodium Level 143 mmol/L (136-145); Troponin (Emerg Dept Use Only) < 0.02 ng/mL (0.0-0.045)
--- NOTE | 2020-10-01 02:41 | ER ---
Nurse's Notes [facility] Name: Cedric Cortez Age: 70 yrs Sex: Male : 1950 Arrival Date: 09/30/2020 Time: 22:05 Bed 27 Private MD: Diagnosis: Radiculopathy, cervical region;Strain of muscle, fascia and tendon at neck level Presentation: 09/30 22:46 Chief complaint: Patient states: he is having "tremendous pain" to his neck and left bb arm with pain and tingling especially in shoulder. Coronavirus screen: At this time, the client does not indicate any symptoms associated with coronavirus-19. Ebola Screen: No symptoms or risks identified at this time. Initial Sepsis Screen: Does the patient meet any 2 criteria? No. Patient's initial sepsis screen is negative. Does the patient have a suspected source of infection? No. Patient's initial sepsis screen is negative. Risk Assessment: Do you want to hurt yourself or someone else? Patient reports no desire to harm self or others. Onset of symptoms is unknown. 22:46 Method Of Arrival: Ambulatory bb 22:46 Acuity: RAJANI 3 bb Triage Assessment: 22:54 General: Appears uncomfortable, Behavior is cooperative, anxious. Pain: Complains of bb pain in neck and left shoulder and arm. Neuro: Level of Consciousness is awake, alert, obeys commands, Oriented to person, place, time, situation. Cardiovascular: Capillary refill < 3 seconds Patient's skin is warm and dry. Respiratory: Respiratory effort is even, unlabored, Respiratory pattern is regular. Musculoskeletal: Capillary refill < 3 seconds, Reports pain in neck and left shoulder and arm with numbness and tingling. Historical: - Allergies: 22:53 No Known Allergies; bb - Home Meds: 22:53 cyclobenzaprine 10 mg oral tab 1 tab 2 times per day [Active]; furosemide 20 mg Oral bb tab 1 tab once daily [Active]; diclofenac sodium 50 mg oral TbEC 1 tab 2 times per day [Active]; atorvastatin 80 mg oral tab 1 tab once daily [Active]; amlodipine 10 mg tab 1 tab once daily [Active]; donepezil 10 mg Oral tab 0.5 tab once daily [Active]; potassium chloride 10 mEq Oral cpER 1 cap once daily [Active]; finasteride 5 mg Oral tab 1 tab once daily [Active]; bisacodyl 5 mg Oral TbEC 2 tabs once daily [Active]; aspirin 81 mg Oral chew 1 tab once daily [Active]; Flomax 0.4 mg Oral cp24 1 cap once daily [Active]; - PMHx: 22:53 BPH; Chronic pain; Hyperlipidemia; Hypertension; Kidney stones; bb - PSHx: 22:53 kidney stent; bb - Immunization history:: Adult Immunizations up to date. - Social history:: Smoking status: Patient reports the use of cigarette tobacco products, smokes one-half pack cigarettes per day. - Family history:: not pertinent. Screenin/11 00:03 Abuse screen: Denies threats or abuse. Nutritional screening: No deficits noted. em Tuberculosis screening: No symptoms or risk factors identified. Fall Risk None identified. Assessment: 09/30 23:55 Reassessment: No changes from previously documented assessment. see triage assessment. bb 10/01 01:09 Reassessment: Patient is alert, oriented x 3, equal unlabored respirations, skin bb warm/dry/pink. Patient states feeling better. Patient states symptoms have improved. 01:41 Reassessment: Patient appears in no apparent distress at this time. pt wheeled to CT em via stretcher. 02:03 Reassessment: Patient and/or family updated on plan of care and expected duration. Pain bb level reassessed. pt states pain is gone. IV site intact no erythema or edema noted, awaiting results of CT scan Patient states feeling better. Vital Signs: 09/30 22:46 BP 155 / 94; Pulse 65; Resp 16 S; Temp 97.8(O); Pulse Ox 97% on R/A; Weight 97.07 kg bb (R); Height 5 ft. 10 in. (177.80 cm) (R); Pain 01/30; 10/01 01:41 BP 148 / 81; Pulse 71; Resp 18; Pulse Ox 96% on R/A; em 02:12 BP 148 / 94; Pulse 52; Resp 16 S; Pulse Ox 95% on R/A; Pain 5; bb 03:11 BP 138 / 78; Pulse 60; Resp 18; Pulse Ox 99% on R/A; em 09/30 22:46 Body Mass Index 30.71 (97.07 kg, 177.80 cm) bb ED Course: 09/30 22:05 Patient arrived in ED. cf2 22:48 Triage completed. bb 22:53 Arm band placed on Patient placed in waiting room, Patient notified of wait time. bb Family accompanied patient. 23:56 Shane Gamino MD is Attending Physician. [facility] 10/01 00:03 Sidney Lucas, RN is Primary Nurse. em 00:03 Patient has correct armband on for positive identification. Bed in low position. Call em light in reach. Adult w/ patient. 00:50 Initial lab(s) drawn, by me, sent to lab. Inserted saline lock: 20 gauge in right bb antecubital area, using aseptic technique. Blood collected. 02:10 CT C Spine In Process Unspecified. EDMS 02:40 Ashok Hurley MD is Referral Physician. [facility] 03:10 No provider procedures requiring assistance completed. IV discontinued, intact, em bleeding controlled, No redness/swelling at site. Pressure dressing applied. Administered Medications: 00:50 Drug: NS 0.9% 1000 ml Route: IV; Rate: 1 bolus; Site: right antecubital; bb 01:50 Follow up: IV Status: Completed infusion; IV Intake: 1000ml bb 00:50 Drug: Valium (diazepam) 5 mg Route: PO; bb 01:50 Follow up: Response: No adverse reaction; Marked relief of symptoms bb 00:51 Drug: Zofran (Ondansetron) 4 mg Route: IVP; Site: right antecubital; bb 01:50 Follow up: Response: No adverse reaction bb 00:53 Drug: morphine 4 mg Route: IVP; Site: right antecubital; bb 02:02 Follow up: Response: No adverse reaction; Marked relief of symptoms; Pain is decreased; bb RASS: Alert and Calm (0) 00:54 Drug: Decadron - Dexamethasone 10 mg Route: IVP; Site: right antecubital; bb 01:50 Follow up: Response: No adverse reaction; Marked relief of symptoms bb 00:55 Drug: TORadol (ketorolac) 30 mg Route: IVP; Site: right antecubital; bb 01:50 Follow up: Response: No adverse reaction; Marked relief of symptoms bb Intake: 01:50 IV: 1000ml; Total: 1000ml. bb Outcome: 02:40 Discharge ordered by . josefina 03:10 Discharged to home via wheelchair, with family. em 03:10 Condition: good 03:10 Discharge instructions given to patient, family, Instructed on discharge instructions, follow up and referral plans. no drinking with medication, no driving heavy equipment, medication usage, Demonstrated understanding of instructions, follow-up care, medications, Prescriptions given X 4. 03:12 Patient left the ED. em Signatures: Dispatcher [employer] Shane Alexandre MD MD cha Munoz, Edgar, RN RN Sabra Maldonado, CISCO RN Addie Mark 2
--- NOTE | 2020-10-01 02:41 | EDPHYS ---
Physician Documentation [facility] Name: Cedric Cortez Age: 70 yrs Sex: Male : 1950 Arrival Date: 09/30/2020 Time: 22:05 Bed 27 Private MD: ED Physician Shane Gamino HPI: 10/01 01:33 This 70 yrs old Male presents to ER via Ambulatory with complaints of Neck josefina Pain, >24Hrs Old, Shoulder Pain, ARM TINGLING, Fall Injury. 01:33 The patient or guardian complains of decreased range of motion, pain, spasm, stiffness, josefina tightness. The symptoms are located at the cervical spine. Onset: The symptoms/episode began/occurred 3 day(s) ago. Context: The problem was sustained at an unknown location, The neck injury/problem resulted from from unknown cause. Associated signs and symptoms: Pertinent positives: tingling, in the left arm. The pain radiates to the left trapezius and left scapular area. Modifying factors: The symptoms are alleviated by remaining still, the symptoms are aggravated by movement, pressure. Severity of symptoms: At their worst the symptoms were mild, moderate, earlier today, in the emergency department the symptoms have improved, moderately. The patient has experienced similar episodes in the past, a few times. Historical: - Allergies: 09/30 22:53 No Known Allergies; bb - Home Meds: 22:53 cyclobenzaprine 10 mg oral tab 1 tab 2 times per day [Active]; furosemide 20 mg Oral bb tab 1 tab once daily [Active]; diclofenac sodium 50 mg oral TbEC 1 tab 2 times per day [Active]; atorvastatin 80 mg oral tab 1 tab once daily [Active]; amlodipine 10 mg tab 1 tab once daily [Active]; donepezil 10 mg Oral tab 0.5 tab once daily [Active]; potassium chloride 10 mEq Oral cpER 1 cap once daily [Active]; finasteride 5 mg Oral tab 1 tab once daily [Active]; bisacodyl 5 mg Oral TbEC 2 tabs once daily [Active]; aspirin 81 mg Oral chew 1 tab once daily [Active]; Flomax 0.4 mg Oral cp24 1 cap once daily [Active]; - PMHx: 22:53 BPH; Chronic pain; Hyperlipidemia; Hypertension; Kidney stones; bb - PSHx: 22:53 kidney stent; bb - Immunization history:: Adult Immunizations up to date. - Social history:: Smoking status: Patient reports the use of cigarette tobacco products, smokes one-half pack cigarettes per day. - Family history:: not pertinent. ROS: 10/01 01:33 Constitutional: Negative for fever, chills, and weight loss, Eyes: Negative for injury, josefina pain, redness, and discharge, Neck: Negative for injury, pain, and swelling, Cardiovascular: Negative for chest pain, palpitations, and edema, Respiratory: Negative for shortness of breath, cough, wheezing, and pleuritic chest pain, Abdomen/GI: Negative for abdominal pain, nausea, vomiting, diarrhea, and constipation, Back: Negative for injury and pain, : Negative for injury, bleeding, discharge, and swelling, MS/Extremity: Negative for injury and deformity, Skin: Negative for injury, rash, and discoloration, Neuro: Negative for headache, weakness, numbness, tingling, and seizure, Psych: Negative for depression, anxiety, suicide ideation, homicidal ideation, and hallucinations, Allergy/Immunology: Negative for hives, rash, and allergies, Endocrine: Negative for neck swelling, polydipsia, polyuria, polyphagia, and marked weight changes, Hematologic/Lymphatic: Negative for swollen nodes, abnormal bleeding, and unusual bruising. ENT: Negative for injury, pain, and discharge. ENT: Positive for MS/extremity: Positive for decreased range of motion, pain, tenderness, of the left scapular area and left trapezius and left arm and cervical spine. Exam: 01:33 Constitutional: This is a well developed, well nourished patient who is awake, alert, josefina and in no acute distress. Head/Face: Normocephalic, atraumatic. Eyes: Pupils equal round and reactive to light, extra-ocular motions intact. Lids and lashes normal. Conjunctiva and sclera are non-icteric and not injected. Cornea within normal limits. Periorbital areas with no swelling, redness, or edema. ENT: Nares patent. No nasal discharge, no septal abnormalities noted. Tympanic membranes are normal and external auditory canals are clear. Oropharynx with no redness, swelling, or masses, exudates, or evidence of obstruction, uvula midline. Mucous membranes moist. Chest/axilla: Normal chest wall appearance and motion. Nontender with no deformity. No lesions are appreciated. Cardiovascular: Regular rate and rhythm with a normal S1 and S2. No gallops, murmurs, or rubs. Normal PMI, no JVD. No pulse deficits. Respiratory: Lungs have equal breath sounds bilaterally, clear to auscultation and percussion. No rales, rhonchi or wheezes noted. No increased work of breathing, no retractions or nasal flaring. Abdomen/GI: Soft, non-tender, with normal bowel sounds. No distension or tympany. No guarding or rebound. No evidence of tenderness throughout. Back: No spinal tenderness. No costovertebral tenderness. Full range of motion. Skin: Warm, dry with normal turgor. Normal color with no rashes, no lesions, and no evidence of cellulitis. MS/ Extremity: Pulses equal, no cyanosis. Neurovascular intact. Full, normal range of motion. Neuro: Awake and alert, GCS 15, oriented to person, place, time, and situation. Cranial nerves II-XII grossly intact. Motor strength 5/5 in all extremities. Sensory grossly intact. Cerebellar exam normal. Normal gait. Psych: Awake, alert, with orientation to person, place and time. Behavior, mood, and affect are within normal limits. 01:33 Neck: External neck: is normal, no acute changes, Thyroid: appears normal, no acute changes, Trachea: is midline with no obvious abnormalities, no acute changes, ROM/movement: pain, limited range of motion, that is mild, Meningeal signs: are not present, Kernig's sign is negative, Brudzinski's sign is negative, nuchal rigidity, is not appreciated, Lymph nodes: no appreciated lymphadenopathy. 01:33 Chest/axilla: Exam negative for 02:07 ECG was reviewed by the Attending Physician. [facility] Vital Signs: 09/30 22:46 BP 155 / 94; Pulse 65; Resp 16 S; Temp 97.8(O); Pulse Ox 97% on R/A; Weight 97.07 kg bb (R); Height 5 ft. 10 in. (177.80 cm) (R); Pain 01/30; 10/01 01:41 BP 148 / 81; Pulse 71; Resp 18; Pulse Ox 96% on R/A; em 02:12 BP 148 / 94; Pulse 52; Resp 16 S; Pulse Ox 95% on R/A; Pain 5/10; bb 03:11 BP 138 / 78; Pulse 60; Resp 18; Pulse Ox 99% on R/A; em 09/30 22:46 Body Mass Index 30.71 (97.07 kg, 177.80 cm) bb MDM: 09/30 23:56 Patient medically screened. [facility] 10/01 01:39 Differential diagnosis: arthritis, C-Spine Fracture Cervical Disc Herniation cervical josefina strain, Degenerative Disc Disease fracture, Spondylosis torticollis, viral meningitis. Data reviewed: vital signs, nurses notes, lab test result(s), EKG, radiologic studies, CT scan. Data interpreted: school bus monitor: not applicable for this patient encounter. rate is 65 beats/min, rhythm is regular, Pulse oximetry: on room air is 97 %. Test interpretation: by ED physician or midlevel provider: ECG, plain radiologic studies. Counseling: I had a detailed discussion with the patient and/or guardian regarding: the historical points, exam findings, and any diagnostic results supporting the discharge/admit diagnosis, lab results, radiology results, the need for outpatient follow up, for definitive care, a family practitioner, a neurologist. 10/01 00:21 Order name: CBC with Diff; Complete Time: 01:24 [facility] 10/01 00:21 Order name: Comprehensive Metabolic Panel; Complete Time: 02:06 [facility] 10/01 00:21 Order name: Troponin (emerg Dept Use Only); Complete Time: 02:06 [facility] 10/01 00:21 Order name: CT C Spine [facility] 10/01 00:21 Order name: EKG; Complete Time: 00:22 [facility] 10/01 00:21 Order name: EKG - Nurse/Tech; Complete Time: 02:01 [facility] EC:07 Rate is 53 beats/min. Rhythm is regular. QRS [place] is Normal. OH interval is normal. QRS josefina interval is normal. QT interval is normal. No Q waves. T waves are Normal. No ST changes noted. Clinical impression: LVH and Sinus bradycardia. Interpreted by me. Reviewed by me. Administered Medications: 00:50 Drug: NS 0.9% 1000 ml Route: IV; Rate: 1 bolus; Site: right antecubital; bb 01:50 Follow up: IV Status: Completed infusion; IV Intake: 1000ml bb 00:50 Drug: Valium (diazepam) 5 mg Route: PO; bb 01:50 Follow up: Response: No adverse reaction; Marked relief of symptoms bb 00:51 Drug: Zofran (Ondansetron) 4 mg Route: IVP; Site: right antecubital; bb 01:50 Follow up: Response: No adverse reaction bb 00:53 Drug: morphine 4 mg Route: IVP; Site: right antecubital; bb 02:02 Follow up: Response: No adverse reaction; Marked relief of symptoms; Pain is decreased; bb RASS: Alert and Calm (0) 00:54 Drug: Decadron - Dexamethasone 10 mg Route: IVP; Site: right antecubital; bb 01:50 Follow up: Response: No adverse reaction; Marked relief of symptoms bb 00:55 Drug: TORadol (ketorolac) 30 mg Route: IVP; Site: right antecubital; bb 01:50 Follow up: Response: No adverse reaction; Marked relief of symptoms bb Disposition: 10/01/20 02:40 Discharged to Home. Impression: Radiculopathy, cervical region, Strain of muscle, fascia and tendon at neck level. - Condition is Stable. - Discharge Instructions: Cervical Radiculopathy, Muscle Strain, Cervical Sprain, [id number], Cervical Radiculopathy, [id number], Radicular Pain. - Prescriptions for dexamethasone 2 mg Oral tablet - take 1 tablet by ORAL route 3 times per day; 15 tablet. Ibuprofen 600 mg Oral Tablet - take 1 tablet by ORAL route every 6 hours As needed take with food; 20 tablet. Tylenol- Codeine #3 300-30 mg Oral Tablet - take 2 tablet by ORAL route every 4-6 hours As needed; 30 tablet. Cyclobenzaprine 5 mg Oral Tablet - take 1 tablet by ORAL route 3 times per day As needed; 15 tablet. - Medication Reconciliation Form, Thank You Letter, Antibiotic Education, Prescription Opioid Use form. - Follow up: Private Physician; When: 2 - 3 days; Reason: Recheck today's complaints, Continuance of care, Re-evaluation by your physician. Follow up: Ashok Hurley; When: 2 - 3 days; Reason: Recheck today's complaints, Re-evaluation by your physician. - Problem is new. - Symptoms have improved. Signatures: Dispatcher [employer] Shane Alexandre MD MD josefina Lucas, Sidney, RN RN em Sabra Hinojosa RN RN bb Corrections: (The following items were deleted from the chart) 03:12 02:40 10/01/2020 02:40 Discharged to Home. Impression: Radiculopathy, cervical region; em Strain of muscle, fascia and tendon at neck level. Condition is Stable. Discharge Instructions: Cervical Radiculopathy, Muscle Strain, Cervical Sprain, [id number], Cervical Radiculopathy, [id number], Radicular Pain. Prescriptions for dexamethasone 2 mg Oral tablet - take 1 tablet by ORAL route 3 times per day; 15 tablet, Ibuprofen 600 mg Oral Tablet - take 1 tablet by ORAL route every 6 hours As needed take with food; 20 tablet, Tylenol-Codeine #3 300-30 mg Oral Tablet - take 2 tablet by ORAL route every 4-6 hours As needed; 30 tablet, Cyclobenzaprine 5 mg Oral Tablet - take 1 tablet by ORAL route 3 times per day As needed; 15 tablet. and Forms are Medication Reconciliation Form, Thank You Letter, Antibiotic Education, Prescription Opioid Use. Follow up: Private Physician; When: 2 - 3 days; Reason: Recheck today's complaints, Continuance of care, Re-evaluation by your physician. Follow up: Ashok Hurley; When: 2 - 3 days; Reason: Recheck today's complaints, Re-evaluation by your physician. Problem is new. Symptoms have improved. josefina
[2020-10-01 03:21] VITALS: TEMP 97.8
[2020-10-01 03:25] VITALS: BP 138/78; O2SAT 99
--- NOTE | 2020-10-01 12:31 | RAD REPORT ---
EXAM DESCRIPTION: CT - C Spine Wo Con - 10/01/2020 4:22 am CLINICAL HISTORY: 70 years, Male, PAIN COMPARISON: None TECHNIQUE: Multiple axial CT images through the cervical spine were obtained at 2 mm slice thickness at 2 mm interval reconstruction. In addition 2-D multiplanar reformats and the sagittal coronal plan e were performed and reviewed. This exam was performed according to our departmental dose-optimization protocol, which includes auto mated exposure control, adjustment of the mA and/or kV according to patient size and/or use of iterat nestor reconstruction technique. FINDINGS: The alignment, vertebral body heights, and disc spaces are normal. There is no evidence of fracture or subluxation. There is degenerative disc disease with decreased intervertebral disc hei ght, anterior spondylosis and posterior osteophyte complex at C5/C6, C6/C7. The spinal canal demonstr ate no evidence for significant stenosis. There is mild left neural foraminal narrowing at C6/C7. The uncovertebral joints demonstrate to be normal. There is no prevertebral soft tissue swelling. Minima l carotid bulb calcification left side. Sagittal coronal reformatted images demonstrate no subluxatio n or bony abnormalities. IMPRESSION: No evidence of acute fracture or subluxation of the cervical spine. Degenerative disc disease at C5/C6, C6/C7 with mild left neural foraminal narrowing at C6/C7. Electronically signed by: Naldo Barrett MD 10/01/2020 2:34 AM CDT Due to temporary technical issues with the PACS/Fluency reporting system, reports are being signed by the in house radiologist without review as a courtesy to ensure prompt reporting. The interpreting r adiologist is fully responsible for the content of the report.
== END 2020-10-01 03:12 | disposition home or self-care (01) ==
LOC: ER 22:04
DX: S16.1XXA Strain of muscle, fascia and tendon at neck level, initial encounter (principal); M54.12 Radiculopathy, cervical region; F17.210 Nicotine dependence, cigarettes, uncomplicated; G89.29 Other chronic pain; E78.5 Hyperlipidemia, unspecified; I10 Essential (primary) hypertension; W19.XXXA Unspecified fall, initial encounter
CPT/HCPCS: 96361; 93005; 85025; 36415; 84484; 80053; 72125; 96375; 96374; 99284; J1100; J7030; J2405

== ENCOUNTER 2023-12-14 04:18 | Emergency (ER) | payer OTHER ==
--- OUTSIDE RECORDS SUMMARY | 2023-12-14 04:24 | XMS REPORT | Continuity of Care Document ---
Author Name Unknown Address [address] [facility] [address] [place] [address] [facility] Address [address] [facility] [address] [place] [address] Care Team Providers Care Evp Business Development Name Role Phone [place], [facility] Primary Car e Physician Chidi Duggan Attending Clinician Unavailable MI MCRAE Attending Clinician Unavailable YAZAN AMATO Attending Clinician Unavail able HENRY ROOT Attending Clinician UnavailValerie Durham MD Attending Clinician [phone] VALERIE MANDUJANO Attending Clinician Unavailable ROSSY OCAMPO Attending Clinician Unavail able Rossy Ocampo MD Attending Clinician Abdoul Recio CRNA Attending Clinician [phone] Chevy Dey MD Attending Clinicia n Only, Adc Test Attending Clinician Unavailable Doctor Unassigned, [place] Attending Clinician U navailable Physician, No Primary or Family Admitting Clinic kiki Unavailable YAZAN AMATO VINCENT Admitting Clinician Unavail ROSSY Jimenez Admitting Clinician Unavail Rossy Jimenez MD Admitting Clinician Payers Payer Name Policy Type Policy Number Effective Date Expirati on Date Source [facility] [id number] 2007 00:00:00 Problems Condition Name Condition Details Condition Category Status Onset Date Resolution Date Last Treatment Date Treating Clinician Comments Source SSS (sick sinus syndrome) SSS (sick sinus syndrome) Disease Active 05-15 00:00: 00 [facility] Bradycardi a Bradycardi a Disease Active 05-15 00:00: 00 [facility] Syncope and collapse Syncope and collapse Disease Active 05-15 00:00: 00 [facility] Sinus node dysfunctio n Sinus node dysfunctio n Disease Active 05-15 00:00: 00 [facility] RIGO BILLING RIGO BILLING Active 04/15/2022 [facility] Diagnosis Active 2021-04 15:30: 00 2022-04-19 14:59:00 Judith Williamson FALL FALL Active 04/15/2022 [facility] Diagnosis Active 2021-04 00:00: 00 2022-04-15 21:35:00 Judith Williamson CLOSED FX OF T6 VERTEBRA CLOSED FX OF T6 VERTEBRA Active 04/15/2022 [facility] Diagnosis Active 2021-04 00:00: 00 2022-04-21 13:10:00 Judith Williamson Mass of right thigh Mass of right thigh Disease Active 10-18 00:00: 00 Overview: Formattin g of this note might be different from the original. Added automatic ally from request for surgery [id number] [facility] UNSP FRACTURE OF T5-T6 VERTEBRA, INIT FO UNSP FRACTURE OF T5-T6 VERTEBRA, INIT FO Active [facility] Diagnosis Active 2022-04-21 13:10:00 Judith Williamson Allergies, Adverse Reactions, Alerts Allergy Name Allergy Type Status Severity Reaction(s) Onset Date Inactive Date Treating Clinician Comments Source No Known Drug Intolera nces DA Active U 01-13 00:00: 00 [facility] No Known Contrast Allergie s DA Active U 01-13 00:00: 00 [facility] No Known Drug Allergie s DA Active U 01-13 00:00: 00 [facility] No Known Food Allergie s DA Active U 01-13 00:00: 00 [facility] No Known Other Allergie s DA Active U 01-13 00:00: 00 [facility] Social History Social Habit Start Date Stop Date Quantity Comments Source History of tobacco use Cigarette Smoker [facility] Alcohol intake 2022-05-18 00:00:00 2022-05-18 00:00:00 Ex-drinker (finding) [facility] Tobacco use and exposure 2022-05-15 00:00:00 2022-05-15 00:00:00 Smokeless tobacco non-user [facility] Social History 2022-04-16 09:10:15 2022-04-16 09:10:15 Tessie Williamson Exposure to SARS-CoV-2 (event) 2021-11-25 00:00:00 2021-12-05 09:40:00 Not sure [facility] Sex Assigned At 1950 00:00:00 1950 00:00:00 [facility] Smoking Status Start Date Stop Date Source Ex-smoker 2022-05-15 00:00:00 2022-05-15 00:00:00 [facility] Social History 2022-04-16 09:09:53 Oneal Montano Occasional tobacco smoker 2021-11-15 00:00:00 [facility] Medications Ordered Medication Name Filled Medication Name Start Date Stop Date Current Medication? Ordering Clinician Indication Dosage Frequency Signature (SIG) Comments Components Source ASPIRIN 81 PO 04-23 00:00: 00 Yes 81mg 81 mg. [facility] docusate sodium (Colace) 100 MG capsule 04-23 00:00: 00 Yes 100mg 100 mg. [facility] atorvastati n (Lipitor) 40 MG tablet 04-23 00:00: 00 Yes 40mg QD Take 40 mg by mouth 1 (one) time each day. [facility] carvedilol (Coreg) 6.25 MG tablet 04-23 00:00: 00 Yes 6.25mg Take 6.25 mg by mouth in the morning and 6.25 mg in the evening. Take with meals. [facility] donepezil (Aricept) 5 MG tablet 04-23 00:00: 00 Yes 5mg 5 mg. [facility] finasteride (Proscar) 5 MG tablet 04-23 00:00: 00 Yes 5mg 5 mg. [facility] furosemide (Lasix) 20 MG tablet 04-23 00:00: 00 Yes 20mg QD Take 20 mg by mouth 1 (one) time each day. [facility] bisacodyl (Dulcolax) 5 MG EC tablet 04-23 00:00: 00 Yes 10mg 10 mg. [facility] amLODIPine (Norvasc) 10 MG tablet 04-23 00:00: 00 Yes 10mg QD Take 10 mg by mouth 1 (one) time each day. [facility] gabapentin (Neurontin) 300 MG capsule 04-23 00:00: 00 05-18 00:00 :00 No 1{capsu le} 1 capsule. [facility] Lidocaine 4 % patch 04-23 00:00: 00 05-18 00:00 :00 No 1{patch } 1 patch. [facility] polyethylen e glycol (Glycolax) 17 GM/SCOOP powder 04-23 00:00: 00 05-18 00:00 :00 No DAILY [facility] senna-docus ate (Camille-Colac e) 8.6-50 MG tablet 04-23 00:00: 00 05-18 00:00 :00 No 2{tbl} 2 tablets. [facility] acetaminoph en-codeine (Tylenol w/ Codeine #3) 300-30 MG tablet 04-23 00:00: 00 05-18 00:00 :00 No 1{tbl} 1 tablet. [facility] remove patch 2021-04 15:00: 00 Yes Notes: Remove old patch before applicatio n of new patch. WASTE: F/P - P Waste Black; E - P Waste Black Judith reyes 2021-04 03:00: 00 Yes Notes: (Same as: Senokot) Judith Williamson gabapentin 2021-04 03:00: 00 No Notes: (Same as: Neurontin) Judith Williamson remove patch 2021-04 03:00: 00 Yes Notes: Remove patch 12 hours after applicatio n each day. Judith Williamson heparin 2021-04 22:00: 00 Yes Notes: porcine heparin Judith Williamson Tums 2021-04 18:30: 00 Yes Notes: (Same As: Tums) Calcium Carbonate 500 mg = 200 mg elemental calcium Dose = mg calcium carbonate ( mg elemental calcium) Judith Williamson docusate 2021-04 15:00: 00 Yes Notes: (Same as: Colace) (Do Not Crush) Judith Williamson polyethylen e glycol 3350 2021-04 15:00: 00 Yes Notes: Dissolve in 8 oz of water or juice. (Same as: Miralax) Judith Williamson Saline Flush 0.9% 2021-04 15:00: 00 Yes Notes: (Same as: BD Posiflush) Judith Williamson nicotine 2021-04 15:00: 00 Yes Notes: Patch is applied daily to clean, dry, hairless, intact skin on trunk or upper outer arm. Starting dose 10 or less cigarettes /day. Remove old patch before applicatio n of new patch. (Same as Felipe Adorno WASTE: F/P - P Waste Black; E - P Waste Black Judith Williamson amLODIPine 2021-04 15:00: 00 Yes Notes: (Same as: Norvasc) Judith Williamson Flomax 2021-04 14:30: 00 Yes Notes: (Same As: Flomax) "Do Not Crush" Judith Williamson lidocaine 4% topical film 2021-04 08:00: 00 Yes Notes: Patch is applied to intact skin to cover painful area for up to 12 hours in a 24-hour period (12 hours on and 12 hours off). Please indicate the location of applicatio n site. Site 1: Remove old patch before applicatio n of new patch. (Same as Aspercreme Lidocaine Patch) Judith Lizarragaann hydrALAZINE 2021-04 07:19: 00 No Notes: (Same as: Apresoline ) Push over 5 minutes [place] khris Williamson acetaminoph en 2021-04 07:18: 00 Yes Notes: Max acetaminop hen 4000 mg/day (4 gm/day). (Same as: Tylenol Extra Strength) Judith khris Williamson oxyCODONE 5 mg/5 mL oral solution 2021-04 07:18: 00 Yes Notes: (Same as: 'Roxicodon e) Judith Williamson oxyCODONE immediate release 2021-04 07:18: 00 Yes Notes: (Same as: Roxicodone ) Judith Williamson naloxone 2021-04 07:18: 00 Yes Notes: Same as Narcan Judith Williamson Saline Flush 0.9% 2021-04 07:17: 00 Yes Notes: (Same as: BD Posiflush) Judith khris Williamson normal saline 0.9% IV 1,000 mL 2021-04 07:17: 00 No 1,000 mL, Rate: 100 ml/hr, Infuse over: 10 hr, Route: IV, Dosing Weight 90.909 kg, Total Volume: 1,000, Start date: 04/16/22 1:17:00 FIXED ROUTE BUS OPERATOR, Duration: 30 day, Stop date: 05/16/22 1:16:00 FIXED ROUTE BUS OPERATOR, BSA: 2.13 m2, 0 Judith Williamson Dextrose 50% Syringe (D50W) 2021-04 07:14: 00 Yes 12.5 gm, 25 mL, Route: IVP, Drug Form: INJ, Dosing Weight 90.909, kg, PRN, PRN Blood Glucose Results, Start date: 04/16/22 1:14:00 FIXED ROUTE BUS OPERATOR, Duration: 30 day, Stop date: 05/16/22 1:13:00 FIXED ROUTE BUS OPERATOR, 0 Judith Williamson glucagon 2021-04 07:14: 00 Yes 1 mg, Route: IM, Drug form: PDR/INJ, PRN, Dosing Weight 90.909, kg, PRN Blood Glucose Results, Start date: 04/16/22 1:14:00 FIXED ROUTE BUS OPERATOR, Duration: 30 day, Stop date: 05/16/22 1:13:00 FIXED ROUTE BUS OPERATOR, 0 Judith Williamson ondansetron 2021-04 07:14: 00 Yes Notes: (Same as: Zofran) MEDICATION WASTE Product Size: 4 mg Product Wasted: ___ mg Judith Williamson melatonin 2021-04 07:14: 00 Yes Notes: (Same as: Melatonin) Judith Williamson Isolyte S PH-7.4 (Bolus) IV 2021-04 23:07: 00 No Notes: (Same as: Isolyte S PH7.4, Normosol-R PH 7.4, Plasma-Lyt e A ) Judith Williamson Omnipaque 350 mg/mL 2021-04 22:45: 00 No 100 mL, Route: IVP, Drug Form: SOLN, Dosing Weight 90.909, kg, ONCALL, STAT, Start date: 04/15/22 16:45:00 FIXED ROUTE BUS OPERATOR, Duration: 1 doses or times, Dose = 2.2ml/kg, Max dose = 100ml -- "To be infused by Radiology Staff ONLY" Judith Lizarragaann Saline Flush 0.9% 2021-04 21:57: 00 Yes Notes: (Same as: BD Posiflush) Judith Lizarragaann ondansetron 2021-04 21:57: 00 No Notes: (Same as: Jean Marie) MEDICATION WASTE Product Size: 4 mg Product Wasted: ___ mg Judith pinedo [facility] gabapentin 300 mg capsule 11-18 09:45: 02 Yes 600mg Take 600 mg by mouth in the morning. [facility] finasteride 5 mg tablet 11-18 09:45: 02 Yes 5mg Take 5 mg by mouth in the morning. [facility] atorvastati n 80 mg tablet 11-18 09:45: 02 Yes 40mg Take 40 mg by mouth at bedtime. [facility] donepeziL 10 mg tablet 11-18 09:45: 02 Yes 5mg Take 5 mg by mouth in the morning. [facility] Bisacodyl 5 mg Tab 11-18 09:45: 02 Yes 10mg Take 10 mg by mouth daily. [facility] furosemide 20 mg tablet 11-18 09:45: 02 Yes 20mg Take 20 mg by mouth in the morning. [facility] aspirin 81 mg EC tablet 11-18 09:45: 02 Yes 81mg Take 81 mg by mouth in the morning. [facility] Vital Signs Vital Name Observation Time Observation Value Comments [facility] Systolic blood pressure 2022-05-18 21:05:00 134 mm[Hg] [facility] Diastolic blood pressure 2022-05-18 21:05:00 76 mm[Hg] [facility] Heart rate 2022-05-18 21:05:00 50 /min [facility] Body weight 2022-05-18 21:05:00 [facility] BMI 2022-05-18 21:05:00 28.59 [facility] Systolic blood pressure 2021-12-05 15:07:00 101 mm[Hg] [facility] Diastolic blood pressure 2021-12-05 15:07:00 66 mm[Hg] [facility] Heart rate 2021-12-05 15:07:00 61 /min [facility] Respiratory rate 2021-12-05 15:07:00 17 /min [facility] Body height 2021-12-05 15:07:00 180.3 cm [facility] Body weight 2021-12-05 15:07:00 95.301 kg [facility] BMI 2021-12-05 15:07:00 29.30 kg/m2 [facility] Oxygen saturation in Arterial blood by Pulse oximetry 2021-12-05 15:07:00 96 /min [facility] Heart Rate 2022-04-17 13:45:49 Dominique Williamson Respitory Rate 2022-04-17 13:45:49 [facility] Systolic (mm Hg) 2022-04-17 13:45:39 [facility] Diastolic (mm Hg) 2022-04-17 13:45:39 [facility] Heart Rate 2022-04-17 13:45:39 [facility] Temperature Oral (F) 2022-04-17 13:43:21 97.6 F [facility] Temperature Oral (F) 2022-04-17 10:25:00 98.5 F [facility] Heart Rate 2022-04-17 10:25:00 [facility] Respitory Rate 2022-04-17 10:25:00 [facility] Systolic (mm Hg) 2022-04-17 10:25:00 [facility] Diastolic (mm Hg) 2022-04-17 10:25:00 [facility] Respitory Rate 2022-04-17 06:07:04 [facility] Systolic (mm Hg) 2022-04-17 06:06:51 [facility] Diastolic (mm Hg) 2022-04-17 06:06:51 [facility] Temperature Oral (F) 2022-04-17 06:06:12 98.3 F [facility] Height 2022-04-16 09:15:00 180.34 cm [facility] Weight 2022-04-16 09:15:00 [facility] BMI Calculated 2022-04-16 09:15:00 [facility] Height 2022-04-15 21:34:00 177.8 cm [facility] BMI Calculated 2022-04-15 21:34:00 [facility] Weight 2022-04-15 21:34:00 [facility] Procedures Procedure Date / Time Performed Performing Clinicia n Source ECG 12-LEAD 2022-05-18 21:10:00 [facility] Encounters Start Date/Time End Date/Time Encounter Type Admission Type Attending Clinicians Care Facility Care Department Encounter ID Source 2022-08-10 09:03:[address] [facility] [id number] [facility] 2022-06-26 10:42:[address] [facility] [id number] [facility] 2022-05-24 04:26:[address] [facility] [id number] [facility] 2022-05-18 14:07:[address] [facility] [id number] [facility] 2022-05-12 14:29:[address] [facility] [id number] [facility] 2022-04-26 17:04:[address] [facility] [id number] [facility] 2022-04-25 10:19:[address] [facility] [id number] [facility] 2020-12-21 13:00:00 Inpatient Chidi Vallecillo [facility] [id number] [facility] 2022-11-02 14:00:00 2022-11-02 14:00:00 Outpatient MI MCRAE [facility] [id number] [facility] 2022-05-18 14:30:00 2022-05-18 15:35:13 Office Visit Mi Mcrae [facility] [id number] [facility] 2022-04-19 14:59:00 2022-04-23 13:00:00 Inpatient YAZAN SHELBY [facility] MED [id number] [facility] 2022-04-15 15:36:00 2022-04-15 23:59:00 Outpatient HENRY ROOT [facility] DIANA [id number] [facility] 2022-04-15 21:31:00 2022-04-15 21:31:00 Observatio damaris [facility] [id number] [facility] 2021-12-05 10:00:00 2021-12-05 10:30:00 Office Visit Valerie Mandujano [facility] [id number] [facility] 2021-12-05 10:00:00 2021-12-05 10:00:00 Outpatient VALERIE MILES [facility] [id number] [facility] 2021-11-18 06:28:00 2021-11-18 09:30:00 Outpatient R ROSSY OCAMPO [facility] DIANA [id number] [facility] 2021-11-18 06:28:00 2021-11-18 09:30:00 Hospital Encounter Rossy Ocampo [facility] [id number] [id number] [facility] 2021-11-18 07:15:00 2021-11-18 09:00:00 Surgery Rossy Ocampo [facility] [id number] [id number] [id number] [facility] 2021-11-18 07:35:00 2021-11-18 08:25:00 Anesthesia Event Abdoul Recio Fernando [facility] [id number] [id number] [id number] [id number] [facility] 2021-11-15 11:00:00 2021-11-15 11:15:00 Laboratory Only Only, Adc Test Rossy Ocampo Ethan [facility] [id number] [id number] [id number] [id number] [facility] 2021-11-15 11:00:00 2021-11-15 11:00:00 Outpatient R CHANTELLROSSY [facility] [id number] [facility] 2021-11-15 00:00:00 2021-11-15 00:00:00 Orders Only Doctor Unassigned, [place] [facility] [id number] [id number] [id number] [facility] 2021-10-18 00:00:00 2021-10-18 00:00:00 Prep For Surgery Rossy Ocampo [facility] [id number] 350.1.13.10 [id number] [id number] [facility] 2021-10-14 09:00:00 2021-10-14 10:06:03 Outpatient R ROSSY OCAMPO [facility] [id number] [facility] 2021-10-14 09:00:00 2021-10-14 10:06:03 Office Visit Rossy Ocampo [facility] [id number] [id number] [id number] [facility] 2021-10-14 09:00:00 2021-10-14 09:00:00 Outpatient R ROSSY OCAMPO [facility] [id number] [facility] 2021-10-14 00:00:00 2021-10-14 00:00:00 Orders Only Doctor Unassigned, [place] [facility] [id number] [id number] [id number] [facility] Results Test Description Test Time Test Comments Results Result Co mments Source [facility]2022-12-26 06:38:00* Test Item Value Reference Range Interpretation Comme nts eGFR (test code = eGFR) 70 [facility] [id number] 06:38:00* Test Item Value Reference Range Interpretation Comme nts Segs (test code = Segs) 63.3 45.0-75.0 [facility] [id number] 06:38:00* Test Item Value Reference Range Interpretation Comme nts Lymphocytes (test code = Lymphocytes) 25.1 20.0-40.0 [facility] [id number] 06:38:00* Test Item Value Reference Range Interpretation Comme nts Monocytes (test code = Monocytes) 8.2 2.0-12.0 [place] 139712-12-26 06:38:00* Test Item Value Reference Range Interpretation Comme nts Eosinophils (test code = Eosinophils) 2.5 See_Comment [Automated messa ge] The system which generated this result transmitted reference range: <=4.0. The reference range was not used to interpret this result as normal/abnormal. [place] 139712-12-26 06:38:00* Test Item Value Reference Range Interpretation Comme nts Basophils (test code = Basophils) 0.9 See_Comment [Automated messa ge] The system which generated this result transmitted reference range: <=1.0. The reference range was not used to interpret this result as normal/abnormal. [place] 139712-12-26 06:38:00* Test Item Value Reference Range Interpretation Comme nts Neutrophils # (test code = N eutrophils #) 5.9 1.5-8.1 [place] 139712-12-26 06:38:00* Test Item Value Reference Range Interpretation Comme nts Lymphocytes # (test code = L ymphocytes #) 2.4 1.0-5.5 [place] 139712-12-26 06:38:00* Test Item Value Reference Range Interpretation Comme nts Monocytes # (test code = Monocytes #) 0.8 See_Comment [Automated messa ge] The system which generated this result transmitted reference range: <=0.8. The reference range was not used to interpret this result as normal/abnormal. [place] 139712-12-26 06:38:00* Test Item Value Reference Range Interpretation Comme nts Eosinophils # (test code = Eosinophils #) 0.2 See_Comment [Automated mess age] The system which generated this result transmitted reference range: <=0.5. The reference range was not used to interpret this result as normal/abnormal. [place] 139712-12-26 06:38:00* Test Item Value Reference Range Interpretation Comme nts Basophils # (test code = Basophils #) 0.1 See_Comment [Automated messa ge] The system which generated this result transmitted reference range: <=0.2. The reference range was not used to interpret this result as normal/abnormal. [place] 139712-12-26 06:38:00* Test Item Value Reference Range Interpretation Comme nts WBC (test code = WBC) 9.4 3.7-10.4 [place] [address]-12-26 06:38:00* Test Item Value Reference Range Interpretation Comme nts RBC (test code = RBC) 4.65 4.70-6.10 [place] [address]-12-26 06:38:00* Test Item Value Reference Range Interpretation Comme nts Hgb (test code = Hgb) 14.6 14.0-18.0 [place] [address]-12-26 06:38:00* Test Item Value Reference Range Interpretation Comme nts Hct (test code = Hct) 43.6 42.0-54.0 [place] [address]-12-26 06:38:00* Test Item Value Reference Range Interpretation Comme nts MCV (test code = MCV) 93.9 80.0-94.0 [place] [address]-12-26 06:38:00* Test Item Value Reference Range Interpretation Comme nts MCH (test code = MCH) 31.4 pg 27.0-31.0 [place] [address]-12-26 06:38:00* Test Item Value Reference Range Interpretation Comme nts MCHC (test code = MCHC) 33.5 32.0-36.0 [place] 139712-12-26 06:38:00* Test Item Value Reference Range Interpretation Comme nts RDW (test code = RDW) 13.3 11.5-14.5 [place] 139712-12-26 06:38:00* Test Item Value Reference Range Interpretation Comme nts Platelet (test code = Platelet) 279 133-450 [place] 139712-12-26 06:38:00* Test Item Value Reference Range Interpretation Comme nts MPV (test code = MPV) 8.1 7.4-10.4 [place] 874632-12-26 06:38:00* Test Item Value Reference Range Interpretation Comme nts Glucose Lvl (test code = Glucose Lvl) 126 70-99 [facility]2022-12-26 06:38:00* Test Item Value Reference Range Interpretation Comme nts BUN (test code = BUN) 16 7-22 [place] 874632-12-26 06:38:00* Test Item Value Reference Range Interpretation Comme nts Creatinine Lvl (test code = Creatinine Lvl) 1.11 0.50-1.40 [facility]2022-12-26 06:38:00* Test Item Value Reference Range Interpretation Comme nts Sodium Lvl (test code = Sodium Lvl) 143 135-145 [facility]2022-12-26 06:38:00* Test Item Value Reference Range Interpretation Comme nts Potassium Lvl (test code = P otassium Lvl) 3.9 3.5-5.1 [facility]2022-12-26 06:38:00* Test Item Value Reference Range Interpretation Comme nts Chloride Lvl (test code = Chloride Lvl) 111 95-109 [facility]2022-12-26 06:38:00* Test Item Value Reference Range Interpretation Comme nts CO2 (test code = CO2) 25 24-32 [facility]2022-12-26 06:38:00* Test Item Value Reference Range Interpretation Comme nts Calcium Lvl (test code = Calcium Lvl) 8.9 8.5-10.5 [facility]2022-12-25 11:06:00* Test Item Value Reference Range Interpretation Comme nts Glucose Lvl (test code = Glucose Lvl) 121 70-99 [facility]2022-12-25 11:06:00* Test Item Value Reference Range Interpretation Comme nts BUN (test code = BUN) 15 7-22 [facility]2022-12-25 11:06:00* Test Item Value Reference Range Interpretation Comme nts Creatinine Lvl (test code = Creatinine Lvl) 0.98 0.50-1.40 [facility]2022-12-25 11:06:00* Test Item Value Reference Range Interpretation Comme nts Sodium Lvl (test code = Sodium Lvl) 140 135-145 [facility]2022-12-25 11:06:00* Test Item Value Reference Range Interpretation Comme nts Potassium Lvl (test code = P otassium Lvl) 3.8 3.5-5.1 [facility]2022-12-25 11:06:00* Test Item Value Reference Range Interpretation Comme nts Chloride Lvl (test code = Chloride Lvl) 109 95-109 [facility]2022-12-25 11:06:00* Test Item Value Reference Range Interpretation Comme nts CO2 (test code = CO2) 25 24-32 [facility]2022-12-25 11:06:00* Test Item Value Reference Range Interpretation Comme nts Calcium Lvl (test code = Calcium Lvl) 8.9 8.5-10.5 [facility]2022-12-25 11:06:00* Test Item Value Reference Range Interpretation Comme nts AGAP (test code = AGAP) 9.8 10.0-20.0 [facility]2022-12-25 11:06:00* Test Item Value Reference Range Interpretation Comme nts eGFR (test code = eGFR) 81 [facility]NDFR4044[facility]97-69 11:06:00* Test Item Value Reference Range Interpretation Comme nts WBC (test code = WBC) 11.1 3.7-10.4 [place] [address]712-12-25 11:06:00* Test Item Value Reference Range Interpretation Comme nts RBC (test code = RBC) 4.90 4.70-6.10 [facility]leDymqjdsMFTLODALRD2958-98-17 11:06:00* Test Item Value Reference Range Interpretation Comme nts Hgb (test code = Hgb) 15.2 14.0-18.0 [place] [address]712-12-25 11:06:00* Test Item Value Reference Range Interpretation Comme nts Hct (test code = Hct) 45.6 42.0-54.0 [place] [address]712-12-25 11:06:00* Test Item Value Reference Range Interpretation Comme nts MCV (test code = MCV) 93.0 80.0-94.0 [place] [address]712-12-25 11:06:00* Test Item Value Reference Range Interpretation Comme nts MCH (test code = MCH) 30.9 pg 27.0-31.0 [place] [address]712-12-25 11:06:00* Test Item Value Reference Range Interpretation Comme nts MCHC (test code = MCHC) 33.2 32.0-36.0 [place] [address]712-12-25 11:06:00* Test Item Value Reference Range Interpretation Comme nts RDW (test code = RDW) 13.1 11.5-14.5 [place] [address]712-12-25 11:06:00* Test Item Value Reference Range Interpretation Comme nts Platelet (test code = Platelet) 295 133-450 [place] 139712-12-25 11:06:00* Test Item Value Reference Range Interpretation Comme nts MPV (test code = MPV) 8.3 7.4-10.4 [place] [address]712-12-25 11:06:00* Test Item Value Reference Range Interpretation Comme nts Segs (test code = Segs) 77.1 45.0-75.0 [place] [address]712-12-25 11:06:00* Test Item Value Reference Range Interpretation Comme nts Lymphocytes (test code = Lymphocytes) 14.8 20.0-40.0 [place] [address]-12-25 11:06:00* Test Item Value Reference Range Interpretation Comme nts Monocytes (test code = Monocytes) 7.2 2.0-12.0 [place] [address]712-12-25 11:06:00* Test Item Value Reference Range Interpretation Comme nts Eosinophils (test code = Eosinophils) 0.4 See_Comment [Automated eventuositya ge] The system which generated this result transmitted reference range: <=4.0. The reference range was not used to interpret this result as normal/abnormal. [facility]leHakywwzLMLGEPRWMJ4834-00-75 11:06:00* Test Item Value Reference Range Interpretation Comme nts Basophils (test code = Basophils) 0.5 See_Comment [Automated eventuositya ge] The system which generated this result transmitted reference range: <=1.0. The reference range was not used to interpret this result as normal/abnormal. [place] [address]712-12-25 11:06:00* Test Item Value Reference Range Interpretation Comme nts Neutrophils # (test code = N eutrophils #) 8.5 1.5-8.1 [place] [address]712-12-25 11:06:00* Test Item Value Reference Range Interpretation Comme nts Lymphocytes # (test code = L ymphocytes #) 1.6 1.0-5.5 [facility]leBzikpqzBZTGOGVRTI2047-45-30 11:06:00* Test Item Value Reference Range Interpretation Comme nts Monocytes # (test code = Monocytes #) 0.8 See_Comment [Automated messa ge] The system which generated this result transmitted reference range: <=0.8. The reference range was not used to interpret this result as normal/abnormal. [facility]JwasmthCPEWUBZHVU9537-38-20 11:06:00* Test Item Value Reference Range Interpretation Comme nts Basophils # (test code = Basophils #) 0.1 See_Comment [Automated messa ge] The system which generated this result transmitted reference range: <=0.2. The reference range was not used to interpret this result as normal/abnormal. [facility] CampusKosklpyDEKZFTEMRZ3216-52-21 04:45:00* Test Item Value Reference Range Interpretation Comme nts Coronavirus (COVID-19) RAMON (test code = Coronavirus (COVID-19) RAMON) Not Detected (04/15/22 10:45 PM) [facility] CenterTellagenceCARSimpleHoneyAC HWSGGFV4861-70-95 01:03:00* Test Item Value Reference Range Interpretation Comme nts HS Troponin I 1 Hr (test cod e = HS Troponin I 1 Hr) 9 [facility] CenterannCARSimpleHoneyAC CRFJTES5776-25-30 01:03:00* Test Item Value Reference Range Interpretation Comme nts HS Troponin I 0 to 1 Hour Delta (test code = HS Troponin I 0 to 1 Hour Delta) See Note 4(04/15/22 7:03 PM) [facility] CenterTellagenceCARSimpleHoneyAC XCYSBEP4869-97-68 22:00:00* Test Item Value Reference Range Interpretation Comme nts HS Troponin I Baseline (test code = HS Troponin I Baseline) 8 [facility] [employer] [id number] 22:00:00* Test Item Value Reference Range Interpretation Comme nts Glucose Lvl (test code = Glucose Lvl) 159 70-99 [facility] [employer] [id number] 22:00:00* Test Item Value Reference Range Interpretation Comme nts BUN (test code = BUN) 17 7-22 [facility] [employer] EWCUL2173-14-35 22:00:00* Test Item Value Reference Range Interpretation Comme nts Creatinine Lvl (test code = Creatinine Lvl) 1.26 0.50-1.40 [facility] [employer] [id number] 22:00:00* Test Item Value Reference Range Interpretation Comme nts Sodium Lvl (test code = Sodium Lvl) 141 135-145 [facility]2022-12-24 22:00:00* Test Item Value Reference Range Interpretation Comme nts Potassium Lvl (test code = P otassium Lvl) 3.9 3.5-5.1 [facility]2022-12-24 22:00:00* Test Item Value Reference Range Interpretation Comme nts Chloride Lvl (test code = Chloride Lvl) 108 95-109 [facility]2022-12-24 22:00:00* Test Item Value Reference Range Interpretation Comme nts CO2 (test code = CO2) 24 24-32 [facility]2022-12-24 22:00:00* Test Item Value Reference Range Interpretation Comme nts Calcium Lvl (test code = Calcium Lvl) 8.5 8.5-10.5 [facility]2022-12-24 22:00:00* Test Item Value Reference Range Interpretation Comme nts AGAP (test code = AGAP) 12.9 10.0-20.0 [facility]2022-12-24 22:00:00* Test Item Value Reference Range Interpretation Comme nts eGFR (test code = eGFR) 60 [facility]2022-12-24 22:00:00* Test Item Value Reference Range Interpretation Comme nts Lactic Acid Lvl (test code = Lactic Acid Lvl) 1.9 0.5-2.2 [place] [address]712-12-24 22:00:00* Test Item Value Reference Range Interpretation Comme nts WBC X 10x3 (test code = WBC X 10x3) 10.4 3.7-10.4 [place] [address]712-12-24 22:00:00* Test Item Value Reference Range Interpretation Comme nts RBC X 10x6 (test code = RBC X 10x6) 5.19 4.70-6.10 [place] [address]712-12-24 22:00:00* Test Item Value Reference Range Interpretation Comme nts Hgb (test code = Hgb) 16.2 14.0-18.0 [place] [address]712-12-24 22:00:00* Test Item Value Reference Range Interpretation Comme nts Hct (test code = Hct) 49.3 42.0-54.0 [facility] AzleTkrbaegIPSVLOHZLW5621-76-15 22:00:00* Test Item Value Reference Range Interpretation Comme nts MCV (test code = MCV) 95.0 80.0-94.0 [facility] AzleRsoijrkTDNGJCUIZS8251-86-48 22:00:00* Test Item Value Reference Range Interpretation Comme nts MCH (test code = MCH) 31.2 pg 27.0-31.0 [facility] AzleJuzhnehQCYRPBGROT5162-95-71 22:00:00* Test Item Value Reference Range Interpretation Comme nts MCHC (test code = MCHC) 32.9 32.0-36.0 [facility] AzleJwyjubnPUTTFLDDES5191-67-69 22:00:00* Test Item Value Reference Range Interpretation Comme nts RDW (test code = RDW) 13.1 11.5-14.5 [facility] AzleWjbszitOGWZDJXBVQ2711-54-47 22:00:00* Test Item Value Reference Range Interpretation Comme nts Platelet (test code = Platelet) 301 133-450 [facility] AzleRrsanvoIXHOKOTFUK7160-36-98 22:00:00* Test Item Value Reference Range Interpretation Comme nts MPV (test code = MPV) 8.6 7.4-10.4 [facility] AzleLrrkxolWIPHFPKGKT3206-29-81 22:00:00* Test Item Value Reference Range Interpretation Comme nts ACT (TEG) Rapid (test code = ACT (TEG) Rapid) 121 s 86-118 [facility] AzleLxzodhmZKNMPPDRKY9639-43-33 22:00:00* Test Item Value Reference Range Interpretation Comme nts Split Point Rapid (test code = Split Point Rapid) 0.6 min [facility] AzleDclmmllFTYHVALAGG7592-08-91 22:00:00* Test Item Value Reference Range Interpretation Comme nts R-time Rapid (test code = R- time Rapid) 0.8 min 0.4-0.7 [facility] AzleVspolylKFVLMBCGYP3744-68-83 22:00:00* Test Item Value Reference Range Interpretation Comme nts K-time Rapid (test code = K- time Rapid) 1.2 min 0.6-2.3 [facility] AzleBksakasRJVOBETPAI7569-10-07 22:00:00* Test Item Value Reference Range Interpretation Comme nts Angle Rapid (test code = Ang le Rapid) 75 degrees 64-80 [place] [address]712-12-24 22:00:00* Test Item Value Reference Range Interpretation Comme nts Max Amplitude Rapid (test co de = Max Amplitude Rapid) 67 mm 52-71 [place] [address]712-12-24 22:00:00* Test Item Value Reference Range Interpretation Comme nts G-value Rapid (test code = G -value Rapid) 10.1 5.0-11.6 [place] [address]712-12-24 22:00:00* Test Item Value Reference Range Interpretation Comme nts Estimated % Lysis Rapid (test code = Estimated % Lysis Rapid) 0.0 See_Comment [Automated messa ge] The system which generated this result transmitted reference range: <=7.5. The reference range was not used to interpret this result as normal/abnormal. [place] [address]712-12-24 22:00:00* Test Item Value Reference Range Interpretation Comme nts Segs (test code = Segs) 67.6 45.0-75.0 [place] [address]712-12-24 22:00:00* Test Item Value Reference Range Interpretation Comme nts Lymphocytes (test code = Lymphocytes) 23.5 20.0-40.[address]12-24 22:00:00* Test Item Value Reference Range Interpretation Comme nts Monocytes (test code = Monocytes) 6.2 2.0-12.[address]12-24 22:00:00* Test Item Value Reference Range Interpretation Comme nts Eosinophils (test code = Eosinophils) 2.4 See_Comment [Automated messa ge] The system which generated this result transmitted reference range: <=4.0. The reference range was not used to interpret this result as normal/abnormal. [place] [address]-12-24 22:00:00* Test Item Value Reference Range Interpretation Comme nts Basophils (test code = Basophils) 0.3 See_Comment [Automated messa ge] The system which generated this result transmitted reference range: <=1.0. The reference range was not used to interpret this result as normal/abnormal. [place] [address]712-12-24 22:00:00* Test Item Value Reference Range Interpretation Comme nts Neutrophils # (test code = N eutrophils #) 7.0 1.5-8.1 [facility] CampusFhbvjulHNABDORMPI8608-56-37 22:00:00* Test Item Value Reference Range Interpretation Comme nts Lymphocytes # (test code = L ymphocytes #) 2.4 1.0-5.5 [facility] HospitalBovluxbLXCXDRRKMP7115-60-13 22:00:00* Test Item Value Reference Range Interpretation Comme nts Monocytes # (test code = Monocytes #) 0.6 See_Comment [Automated messa ge] The system which generated this result transmitted reference range: <=0.8. The reference range was not used to interpret this result as normal/abnormal. [facility] CenterEkuwmqtFQZCMUXBZJ6538-67-10 22:00:00* Test Item Value Reference Range Interpretation Comme nts Eosinophils # (test code = Eosinophils #) 0.2 See_Comment [Automated mess age] The system which generated this result transmitted reference range: <=0.5. The reference range was not used to interpret this result as normal/abnormal. [facility] CampusQboupisGASJNVVOAH4716-97-98 22:00:00* Test Item Value Reference Range Interpretation Comme nts Ethanol Lvl (test code = Ethanol Lvl) no gt [facility] CenterAhejspfKUVWPYDDPK4074-92-56 22:00:00* Test Item Value Reference Range Interpretation Comme nts Etoh (%) (test code = Etoh (%)) no gt [facility] CenterannCARDIAC VAFIOLM3064-36-28 22:00:00* Test Item Value Reference Range Interpretation Comme nts Total CK (test code = Total CK) 157 12-191 [facility]
[2023-12-14 05:11] LABS: PT Prothrombin Time 10.6 SECONDS (9.4-12.5); Protime INR 0.94
[2023-12-14 05:15] LABS: Absolute Eosinophils 0.3 K/uL (0-0.5); Absolute Lymphocytes (CBC) 2.9 K/uL (0.7-4.9); Absolute Monocytes 0.7 K/uL (0.1-1.3); Absolute Neutrophil 4.5 K/uL (1.8-8.0); Basophils % 0.2 % (0-1.3); Hematocrit 44.7 % (39.6-49.0); Hemoglobin 15.2 g/dL (13.6-17.9); Lymphocytes % 34.4 % (15.3-44.8); MCH 31.9 pg (27.0-35.0); MCV 93.6 fL (80-100); MPV 8.3 fL (7.6-11.3); Monocytes % 8.3 % (3.3-12.3); Neutrophils % 53.1 % (41.7-73.7); Nucleated Red Blood Cells % 0.1 % (0-0); Platelets 300 thou/uL (152-406); RBC Red Blood Cell Count 4.77 M/uL (4.33-5.43); Red Cell Distribution Width 13.2 % (12.1-15.2)
[2023-12-14 05:26] LABS: ALT/SGPT 28 U/L (16-61); AST/SGOT 19 U/L (15-37); Albumin 3.6 g/dL (3.4-5.0); Albumin/Globulin Ratio 1.2 (1.1-1.8); Alkaline Phosphatase 75 U/L (45-117); Anion Gap 8.1 mEq/L (5.0-15.0); BUN Blood Urea Nitrogen 17 mg/dL (7-18); Bicarbonate 28 mEq/L (21-32); Bilirubin Total 0.4 mg/dL (0.2-1.0); Globulin 3.1 g/dL (2.3-3.5); Glomerular Filtration Rate 78 ml/min (=/>90); Glucose Level 113 mg/dL (74-106); NT PRO-BNP 62 pg/mL (<450); Potassium 4.1 mEq/L (3.5-5.1); Protein, Total 6.7 g/dL (6.4-8.2); Sodium Level 142 mEq/L (136-145); Troponin High Sensitivity 8.6 pg/mL (<58.9)
[2023-12-14 05:28] LABS: Bilirubin Direct < 0.2 mg/dL (0-0.2); Bilirubin Indirect, Calculated 0.2 mg/dL (0.2-0.8)
--- NOTE | 2023-12-14 07:48 | RAD REPORT ---
EXAM DESCRIPTION: Ramya Single View12/14/2023 6:36 am CLINICAL HISTORY: Chest pain COMPARISON: 2021 FINDINGS: A vague small opacity medial right lung base Otherwise lungs appear clear of acute infiltrate The heart is mildly enlarged Pacemaker leads in place IMPRESSION: A vague small opacity medial right lung base probably benign Follow-up chest x-ray 3 months recommended for re-evaluation
--- NOTE | 2023-12-14 08:45 | EDPHYS ---
Physician Documentation [facility] Name: Cedric Cortez Age: 73 yrs Sex: Male : 1950 Arrival Date: 12/14/2023 Time: 04:18 Bed 7 Private MD: ED Physician Lars Vasquez HPI: 12/13 04:35 This 73 yrs old Male presents to ER via Unassigned with complaints of High sp4 Blood Pressure, Pt has a pacemaker, Dizziness. 05:12 73 year old male with PMH of DM , chronic pain BPH hyperlipidemia hypertension kidney sp4 stones atrial pacemaker in 2021, currently takes lisinopril 2.5 mg daily, aspirin 81 mg daily, Coreg 12.5 mg twice a day, amlodipine 10 mg daily, atorvastatin as well, metformin, patient generally goes to [place] for his medical care. Presents today with 3 weeks of nausea wobbly gait and dizziness.. . Historical: - Allergies: 04:44 No Known Allergies; jj7 - PMHx: 04:44 BPH; Chronic pain; Hyperlipidemia; Hypertension; Kidney stones; jj7 - PSHx: 04:44 PACEMAKER; jj7 - Immunization history:: Client reports receiving the 2nd dose of the Covid vaccine, Pneumococcal vaccine is not up to date, Flu vaccine is not up to date. - Infectious Disease History:: Denies. - Social history:: Smoking status: Patient reports the use of cigarette tobacco products, smokes one-half pack cigarettes per day, Patient uses Patient/guardian denies using alcohol, street drugs, IV drugs, caffeine. - Family history:: not pertinent. ROS: 05:12 Constitutional: Negative for fever, chills, and weight loss, positive dizziness, sp4 positive wobbly gait, positive nausea is reported. Positive elevated blood pressure 05:12 All other systems are negative, Exam: 05:10 Constitutional: This is a well developed, well nourished patient who is awake, alert, sp4 and in no acute distress. Head/Face: Normocephalic, atraumatic. Eyes: Pupils equal round and reactive to light, extra-ocular motions intact. Lids and lashes normal. Conjunctiva and sclera are not injected. Cornea within normal limits. Periorbital areas with no swelling, redness, or edema. ENT: Nares patent. No nasal discharge, no septal abnormalities noted. Tympanic membranes are normal and external auditory canals are clear. Oropharynx with no redness, swelling, or masses, exudates, or evidence of obstruction, uvula midline. Mucous membranes moist. Neck: Trachea midline, no thyromegaly or masses palpated, and no cervical lymphadenopathy. Supple, full range of motion without nuchal rigidity, or vertebral point tenderness. Chest/axilla: Normal chest wall appearance and motion. Nontender with no deformity. No lesions are appreciated. Cardiovascular: Regular rate and rhythm with a normal S1 and S2. No gallops, murmurs, or rubs. Normal PMI, no JVD. No pulse deficits. Respiratory: Lungs have equal breath sounds bilaterally, clear to auscultation and percussion. No rales, rhonchi or wheezes noted. No increased work of breathing, no retractions or nasal flaring. Abdomen/GI: Soft, with normal bowel sounds. No distension or tympany. No guarding or rebound. No evidence of tenderness throughout. Back: No spinal tenderness. No costovertebral tenderness. Skin: Warm, dry with normal turgor. Normal color with no rashes, no lesions, and no evidence of cellulitis. MS/ Extremity: Pulses equal, no cyanosis. Neurovascular intact. Full, normal range of motion. Neuro: Awake and alert, GCS 15, oriented to person, place, time, and situation. Cranial nerves II-XII grossly intact. Motor strength 5/5 in all extremities. Sensory grossly intact. Psych: Awake, alert, with orientation to person, place and time. Behavior, mood, and affect are within normal limits 05:10 ECG was reviewed by the Attending Physician. EKG at 04:41 at 60 bpm Atrial paced rhythm Vital Signs: 04:30 BP 176 / 98; Pulse 58; Resp 19; Temp 98.8; Pulse Ox 97% ; Weight 96.16 kg; Height 5 ft. jj7 11 in. ; Pain 0/10; 04:45 BP 168 / 102; Pulse 61; Resp 18; Temp 98.8; Pulse Ox 97% ; Pain 0/10; bm8 05:38 BP 165 / 88; Pulse 60; Resp 15; Temp 98.8; Pulse Ox 97% ; Pain 0/10; bm8 06:55 BP 163 / 85; Pulse 61; Resp 17; Temp 98.8; Pulse Ox 97% ; Pain 0/10; bm8 08:53 BP 147 / 61; Pulse 62; Resp 17; Pulse Ox 100% on R/A; ap3 04:30 Body Mass Index 29.57 (96.16 kg, 180.34 cm) jj7 04:30 Pain Scale: Adult jj7 04:45 Pain Scale: Adult bm8 05:38 Pain Scale: Adult bm8 06:55 Pain Scale: Adult bm8 NIH Stroke Scale Scores: 05:04 NIHSS Score: 0 bm8 05:10 NIHSS Score: 0 sp4 [place] Coma Score: 04:45 Eye Response: spontaneous(4). Motor Response: obeys commands(6). Verbal Response: bm8 oriented(5). Total: 15. 05:10 Eye Response: spontaneous(4). Motor Response: obeys commands(6). Verbal Response: sp4 oriented(5). Total: 15. 05:38 Eye Response: spontaneous(4). Motor Response: obeys commands(6). Verbal Response: bm8 oriented(5). Total: 15. 06:55 Eye Response: spontaneous(4). Motor Response: obeys commands(6). Verbal Response: bm8 oriented(5). Total: 15. MDM: 04:36 Patient medically screened. sp4 06:22 Differential diagnosis: hypertensive crisis, Malignant HTN, CVA, intracerebral sp4 hemorrhage. Data reviewed: vital signs, nurses notes, lab test result(s), EKG, radiologic studies, CT scan, plain films. 06:38 ED course: EXAM: CT Head Without Intravenous Contrast CLINICAL HISTORY: The patient is sp4 73 years old and is Male; DIZZINESS TECHNIQUE: Axial computed tomography images of the head/brain without intravenous contrast. Sagittal and coronal reformatted images were created and reviewed. This CT exam was performed using one or more of the following dose reduction techniques: automated exposure control, adjustment of the mA and/or kV according to patient size, and/or use of iterative reconstruction technique. COMPARISON: No relevant prior studies available. FINDINGS: Brain: Unremarkable. No hemorrhage. No significant white matter disease. No edema. Ventricles: Unremarkable. No ventriculomegaly. Bones/joints: Unremarkable. No acute skull fracture. Soft tissues: Unremarkable. Sinuses: Unremarkable as visualized. No acute sinusitis. Mastoid air cells: No significant mastoid fluid. IMPRESSION: No acute intracranial findings. No hemorrhage. . 06:50 Consideration of Admission/Observation Escalation of care including sp4 admission/observation considered. Transition of care: After a detail discussion of the patient's case, care is transferred to Lars Vasquez MD. 08:35 Counseling: I had a detailed discussion with the patient and/or guardian regarding the rn historical points, exam findings, and any diagnostic results supporting the discharge/admit diagnosis, lab results. 08:42 Care significantly affected by the following chronic conditions: Hypertension. Response rn to treatment: the patient's symptoms have markedly improved after treatment, and as a result, I will discharge patient. ED course: Pt signed out to me by Dr. Chowdary, plan was to follow-up CT angio head and neck and if no acute findings discharge with neurology follow-up with his private neurologist. Patient feels better. CT angio head and neck without occlusion. Shows small left vertebral artery which could explain some vertebrobasilar symptoms and dizziness. No other acute findings and blood work. Will discharge home with neuro follow-up and return precautions.. 12/13 04:36 Order name: Basic Metabolic Panel; Complete Time: 06:21 sp4 12/13 04:36 Order name: CBC with Diff; Complete Time: 06:21 sp4 12/13 04:36 Order name: LFT's; Complete Time: 06:21 sp4 12/13 04:36 Order name: Magnesium; Complete Time: 06:21 sp4 12/13 04:36 Order name: NT PRO-BNP; Complete Time: 06:21 sp4 12/13 04:36 Order name: PT-INR; Complete Time: 06:21 sp4 12/13 04:36 Order name: Troponin HS; Complete Time: 06:21 sp4 12/13 05:05 Order name: CT Head Brain wo Cont sp4 12/13 05:05 Order name: CT Neck Angio sp4 12/13 05:19 Order name: Head angio EDMS 12/13 06:22 Order name: Chest Single View XRAY; Complete Time: 08:22 sp4 12/13 04:36 Order name: EKG; Complete Time: 04:36 sp4 12/13 04:36 Order name: Cardiac monitoring; Complete Time: 05:04 sp4 12/13 04:36 Order name: EKG - Nurse/Tech; Complete Time: 04:47 sp4 12/13 04:36 Order name: IV Saline Lock; Complete Time: 05:04 sp4 12/13 04:36 Order name: Labs collected and sent; Complete Time: 05:04 sp4 12/13 04:36 Order name: O2 Per Protocol; Complete Time: 05:04 sp4 12/13 04:36 Order name: O2 Sat Monitoring; Complete Time: 05:04 sp4 EC:10 Rate is 60 beats/min. Rhythm is regular, Paced. QRS [place] is Normal. QRS interval is sp4 normal. QT interval is normal. No Q waves. T waves are Normal. No ST changes noted. Clinical impression: No evidence of ischemia. Interpreted by me. Reviewed by me. Administered Medications: No medications were administered Disposition Summary: 12/14/23 08:44 Discharge Ordered Notes: Location: Home rn Problem: new rn Symptoms: have improved rn Condition: Stable rn Diagnosis - Dizziness and giddiness rn Followup: rn - With: Private Physician - When: As needed - Reason: Recheck today's complaints, Re-evaluation by your physician Discharge Instructions: - Discharge Summary Sheet rn - Dizziness rn Forms: - Medication Reconciliation Form rn - Antibiotic fusing furnace loader - Prescription Opioid Use rn - Patient Portal Instructions rn - Leadership Thank You Letter rn Prescriptions: - ondansetron 4 mg Oral Tablet,disintegrating - take 1 tablet ORAL route every 8 hours As needed as needed for nausea and rn vomiting; 12 tablet; Refills: 0, Product Selection Permitted NIH Stroke Scale - NIH Stroke Score Date: 12/14/2023 Time: 05:04 Total Score = 0 10. Dysarthria (speech clarity - read or repeat words) - 0(Normal) 11. Extinction and Inattention (visual/tactile/auditory/spatial/personal) - 0(No abnormality) 1a. Level of Consciousness (LOC) - 0(Alert) 1b. Level of Consciousness (LOC) (Month \T\ Age) - 0(Both) 1c. LOC Commands (Open \T\ Closes Eyes/Conditioner Tumbler Operator) - 0(Both) 2. Best Gaze (Lateral Gaze Paresis) - 0(Normal) 3. Visual Field Loss - 0(No visual loss) 4. Facial Palsy - 0(Normal) 5a. Left Arm: Motor (10-second hold) - 0(No drift) 5b. Right Arm: Motor (10-second hold) - 0(No drift) 6a. Left Leg: Motor (5-second hold - always test supine) - 0(No drift) 6b. Right Leg: Motor (5-second hold - always test supine) - 0(No drift) 7. Limb Ataxia (finger/nose \T\ heel/salazar - test with eyes open) - 0(Absent) 8. Sensory Loss (pinprick arms/legs/face) - 0(Normal) 9. Best Language: Aphasia (description/naming/reading) - 0(No aphasia) Initials: bm8 NIH Stroke Scale - NIH Stroke Score Date: 12/14/2023 Time: 05:10 Total Score = 0 10. Dysarthria (speech clarity - read or repeat words) - 0(Normal) 11. Extinction and Inattention (visual/tactile/auditory/spatial/personal) - 0(No abnormality) 1a. Level of Consciousness (LOC) - 0(Alert) 1b. Level of Consciousness (LOC) (Month \T\ Age) - 0(Both) 1c. LOC Commands (Open \T\ Closes Eyes/Conditioner Tumbler Operator) - 0(Both) 2. Best Gaze (Lateral Gaze Paresis) - 0(Normal) 3. Visual Field Loss - 0(No visual loss) 4. Facial Palsy - 0(Normal) 5a. Left Arm: Motor (10-second hold) - 0(No drift) 5b. Right Arm: Motor (10-second hold) - 0(No drift) 6a. Left Leg: Motor (5-second hold - always test supine) - 0(No drift) 6b. Right Leg: Motor (5-second hold - always test supine) - 0(No drift) 7. Limb Ataxia (finger/nose \T\ heel/salazar - test with eyes open) - 0(Absent) 8. Sensory Loss (pinprick arms/legs/face) - 0(Normal) 9. Best Language: Aphasia (description/naming/reading) - 0(No aphasia) Initials: sp4 Signatures: Dispatcher [employer] Lars Fernandez MD MD rn Johnson, Juwairiyah, RN RN jj7 Potepalov, Sergey, MD MD sp4 Corrections: (The following items were deleted from the chart) 04:46 04:44 PSHx: PACEMAKER (Kidney stones); jj7 jj7 05:05 05:05 Head Brain Wo Cont+CT.RAD.BRZ ordered. EDMS EDMS
--- NOTE | 2023-12-14 08:45 | ER ---
Nurse's Notes [facility] Name: Cedric Cortez Age: 73 yrs Sex: Male : 1950 Arrival Date: 12/14/2023 Time: 04:18 Bed 7 Private MD: Diagnosis: Dizziness and giddiness Presentation: 12/13 04:30 Chief complaint: Patient states: FEELS LIKE HE HAS HAD HIGH BP FOR ABOUT 2 WEEKS. jj7 HASN'T CHECKED IT BUT FEELS LIKE IT. JUST GOT BACK FROM [facility] TUESDAYS. SPOKE WITH HIS PCP SUN AND WAS TOLD TO COME TO THE ER BUT WAS TO BUSY. FEELS A LITTLE DIZZY. Coronavirus screen: At this time, the client does not indicate any symptoms associated with coronavirus-19. Ebola Screen: No symptoms or risks identified at this time. Initial Sepsis Screen: Does the patient meet any 2 criteria? No. Patient's initial sepsis screen is negative. Does the patient have a suspected source of infection? No. Patient's initial sepsis screen is negative. Risk Assessment: Do you want to hurt yourself or someone else? Patient reports no desire to harm self or others. Onset of symptoms was November 23, 2023. 04:30 Method Of Arrival: Ambulatory [facility] 04:30 Acuity: RAJANI 3 jj7 Triage Assessment: 04:44 General: Appears in no apparent distress. comfortable, Behavior is calm, cooperative, jj7 appropriate for age. Pain: Denies pain. Neuro: Reports dizziness. Cardiovascular: Reports HIGH BP. Historical: - Allergies: 04:44 No Known Allergies; jj7 - PMHx: 04:44 BPH; Chronic pain; Hyperlipidemia; Hypertension; Kidney stones; jj7 - PSHx: 04:44 PACEMAKER; jj7 - Immunization history:: Client reports receiving the 2nd dose of the Covid vaccine, Pneumococcal vaccine is not up to date, Flu vaccine is not up to date. - Infectious Disease History:: Denies. - Social history:: Smoking status: Patient reports the use of cigarette tobacco products, smokes one-half pack cigarettes per day, Patient uses Patient/guardian denies using alcohol, street drugs, IV drugs, caffeine. - Family history:: not pertinent. Screenin:45 [facility] ED Fall Risk Assessment (Adult) History of falling in the last 3 months, bm8 including since admission No falls in past 3 months (0 pts) Confusion or Disorientation No (0 pts) Intoxicated or Sedated No (0 pts) Impaired Gait No (0 pts) Mobility Assist Device Used No (0 pt) Altered Elimination No (0 pt) Score/Fall Risk Level 0 - 2 = Low Risk Oriented to surroundings, Maintained a safe environment, Educated pt \T\ family on fall prevention, incl call for assistance when getting out of bed, Assessed \T\ reinforced patient's understanding of fall precautions, Hourly rounding (assess needs \T\ fall precautionary measures) done, Used ambulatory aids as needed (educated on \T\ assisted with), Used gait belt as appropriate. Abuse screen: Denies threats or abuse. Nutritional screening: No deficits noted. Tuberculosis screening: No symptoms or risk factors identified. Assessment: 04:45 General: Appears in no apparent distress. comfortable, Behavior is calm, cooperative, bm8 appropriate for age. Pain: Denies pain. Neuro: No deficits noted. Level of Consciousness is awake, alert, obeys commands, Oriented to person, place, time, situation, Appropriate for age. Cardiovascular: Reports dizziness Heart tones S1 S2 present Capillary refill < 3 seconds Patient's skin is warm and dry. Cardiovascular: Reports high blood pressure for two weeks but has not measured it. Respiratory: Airway is patent Respiratory effort is even, unlabored, Respiratory pattern is regular, symmetrical, Breath sounds are clear bilaterally. GI: No deficits noted. No signs and/or symptoms were reported involving the gastrointestinal system. : No deficits noted. No signs and/or symptoms were reported regarding the genitourinary system. EENT: No deficits noted. No signs and/or symptoms were reported regarding the EENT system. Derm: No deficits noted. No signs and/or symptoms reported regarding the dermatologic system. Musculoskeletal: No deficits noted. No signs and/or symptoms reported regarding the musculoskeletal system. 05:38 Reassessment: Patient appears in no apparent distress at this time. No changes from bm8 previously documented assessment. Patient and/or family updated on plan of care and expected duration. Pain level reassessed. Patient is alert, oriented x 3, equal unlabored respirations, skin warm/dry/pink. Patient denies pain at this time. 06:55 Reassessment: Patient appears in no apparent distress at this time. Patient and/or bm8 family updated on plan of care and expected duration. Pain level reassessed. Patient is alert, oriented x 3, equal unlabored respirations, skin warm/dry/pink. Patient denies pain at this time. Patient states feeling better. Patient states symptoms have improved. 07:15 Reassessment: Patient appears in no apparent distress at this time. Patient and/or iw family updated on plan of care and expected duration. Pain level reassessed. Patient is alert, oriented x 3, equal unlabored respirations, skin warm/dry/pink. Patient states feeling better. Vital Signs: 04:30 BP 176 / 98; Pulse 58; Resp 19; Temp 98.8; Pulse Ox 97% ; Weight 96.16 kg; Height 5 ft. jj7 11 in. ; Pain 0/10; 04:45 BP 168 / 102; Pulse 61; Resp 18; Temp 98.8; Pulse Ox 97% ; Pain 0/10; bm8 05:38 BP 165 / 88; Pulse 60; Resp 15; Temp 98.8; Pulse Ox 97% ; Pain 0/10; bm8 06:55 BP 163 / 85; Pulse 61; Resp 17; Temp 98.8; Pulse Ox 97% ; Pain 0/10; bm8 08:53 BP 147 / 61; Pulse 62; Resp 17; Pulse Ox 100% on R/A; ap3 04:30 Body Mass Index 29.57 (96.16 kg, 180.34 cm) jj7 04:30 Pain Scale: Adult jj7 04:45 Pain Scale: Adult bm8 05:38 Pain Scale: Adult bm8 06:55 Pain Scale: Adult bm8 [place] Coma Score: 04:45 Eye Response: spontaneous(4). Motor Response: obeys commands(6). Verbal Response: bm8 oriented(5). Total: 15. 05:10 Eye Response: spontaneous(4). Motor Response: obeys commands(6). Verbal Response: sp4 oriented(5). Total: 15. 05:38 Eye Response: spontaneous(4). Motor Response: obeys commands(6). Verbal Response: bm8 oriented(5). Total: 15. 06:55 Eye Response: spontaneous(4). Motor Response: obeys commands(6). Verbal Response: bm8 oriented(5). Total: 15. NIH Stroke Scale Scores: 05:04 NIHSS Score: 0 bm8 05:10 NIHSS Score: 0 sp4 ED Course: 04:30 Patient arrived in ED. gm2 04:35 Trevor Chowdary MD is Attending Physician. sp4 04:44 Triage completed. jj7 04:44 Arm band placed on right wrist. Patient placed in an exam room, on a stretcher. jj7 04:45 Crow Penn, RN is Primary Nurse. bm8 04:45 Patient has correct armband on for positive identification. Bed in low position. Call bm8 light in reach. Side rails up X 1. Client placed on continuous cardiac and pulse oximetry monitoring. NIBP monitoring applied. bus driver/monitor on. Pulse ox on. NIBP on. Door closed. Noise minimized. Pillow given. Verbal reassurance given. Head of bed elevated. 04:45 No provider procedures requiring assistance completed. Inserted saline lock: 20 gauge bm8 in left hand, using aseptic technique. Blood collected. Flushed with 10 mL NS Missed attempt(s): 20 gauge in right hand. Bleeding controlled, band aid applied, catheter tip intact. 04:45 Initial lab(s) drawn, by me, sent to lab. EKG done, by ED staff, reviewed by Trevor Chowdary MD. 06:10 CT Head Brain wo Cont In Process Unspecified. EDMS 06:10 CT Neck Angio In Process Unspecified. EDMS 06:11 Head angio In Process Unspecified. EDMS 06:38 Chest Single View XRAY In Process Unspecified. EDMS 06:55 Provided Education on: post er care. Report given to CISCO De Jesus. bm8 07:03 Attending Physician role handed off by Trevor Chowdary MD rn 07:03 Lars Vasquez MD is Attending Physician. rn 07:54 Primary Nurse role handed off by Crow Penn, RN iw 07:54 Liza Milan RN is Primary Nurse. iw 08:53 IV discontinued, intact, bleeding controlled, No redness/swelling at site. Pressure ap3 dressing applied. Administered Medications: No medications were administered Medication: 04:45 VIS not applicable for this client. bm8 Outcome: 08:44 Discharge ordered by . rn 08:52 Discharged to home ambulatory, ap3 08:52 Condition: good 08:52 Discharge instructions given to patient, Instructed on discharge instructions, follow up and referral plans. medication usage, Demonstrated understanding of medications, Prescriptions given X 1, 08:53 Patient left the ED. ap3 NIH Stroke Scale - NIH Stroke Score Date: 12/14/2023 Time: 05:04 Total Score = 0 10. Dysarthria (speech clarity - read or repeat words) - 0(Normal) 11. Extinction and Inattention (visual/tactile/auditory/spatial/personal) - 0(No abnormality) 1a. Level of Consciousness (LOC) - 0(Alert) 1b. Level of Consciousness (LOC) (Month \T\ Age) - 0(Both) 1c. LOC Commands (Open \T\ Closes Eyes/Assembler Fitter) - 0(Both) 2. Best Gaze (Lateral Gaze Paresis) - 0(Normal) 3. Visual Field Loss - 0(No visual loss) 4. Facial Palsy - 0(Normal) 5a. Left Arm: Motor (10-second hold) - 0(No drift) 5b. Right Arm: Motor (10-second hold) - 0(No drift) 6a. Left Leg: Motor (5-second hold - always test supine) - 0(No drift) 6b. Right Leg: Motor (5-second hold - always test supine) - 0(No drift) 7. Limb Ataxia (finger/nose \T\ heel/salazar - test with eyes open) - 0(Absent) 8. Sensory Loss (pinprick arms/legs/face) - 0(Normal) 9. Best Language: Aphasia (description/naming/reading) - 0(No aphasia) Initials: bm8 NIH Stroke Scale - NIH Stroke Score Date: 12/14/2023 Time: 05:10 Total Score = 0 10. Dysarthria (speech clarity - read or repeat words) - 0(Normal) 11. Extinction and Inattention (visual/tactile/auditory/spatial/personal) - 0(No abnormality) 1a. Level of Consciousness (LOC) - 0(Alert) 1b. Level of Consciousness (LOC) (Month \T\ Age) - 0(Both) 1c. LOC Commands (Open \T\ Closes Eyes/Assembler Fitter) - 0(Both) 2. Best Gaze (Lateral Gaze Paresis) - 0(Normal) 3. Visual Field Loss - 0(No visual loss) 4. Facial Palsy - 0(Normal) 5a. Left Arm: Motor (10-second hold) - 0(No drift) 5b. Right Arm: Motor (10-second hold) - 0(No drift) 6a. Left Leg: Motor (5-second hold - always test supine) - 0(No drift) 6b. Right Leg: Motor (5-second hold - always test supine) - 0(No drift) 7. Limb Ataxia (finger/nose \T\ heel/salazar - test with eyes open) - 0(Absent) 8. Sensory Loss (pinprick arms/legs/face) - 0(Normal) 9. Best Language: Aphasia (description/naming/reading) - 0(No aphasia) Initials: sp4 Signatures: Dispatcher [employer] EDLiza Lazo, RN Lars Cline MD MD rn Prokisch, Amanda, RN RN ap3 Trung Lopez RN RN jTrevor Baker MD MD sp4 Peg Cooper 2 Crow Penn RN RN bm8 Corrections: (The following items were deleted from the chart) 04:46 04:44 PSHx: PACEMAKER (Kidney stones); jj7 jj7
[2023-12-14 09:02] VITALS: TEMP 98.8
[2023-12-14 09:09] VITALS: BP 147/61; O2SAT 100
--- NOTE | 2023-12-14 13:27 | EKG ---
Test Date: 2023-12-14 Test Time: 04:41:30 Accounting Systems Manager: PHAN MEASUREMENT RESULTS: Intervals: Rate: 60 [place]: 190 QRSD: 108 QT: 414 QTc: 414 [place]: P: [place]: 190 QRS: -51 T: 6 INTERPRETIVE STATEMENTS: Atrial-paced rhythm Left anterior fascicular block Moderate voltage criteria for LVH, may be normal variant Abnormal ECG Compared to ECG 10/01/2020 01:57:28 Sinus bradycardia no longer present Electronically Signed On 12-14-23 13:26:11 CDT by Michael Quick
--- NOTE | 2023-12-17 11:47 | RAD REPORT ---
EXAM DESCRIPTION: CT - Head angio - 12/14/2023 6:09 am CLINICAL HISTORY: 73 years Male dizziness. TECHNIQUE: Following dynamic intravenous nonionic contrast infusion, multiple axial helical CT image s with multiplanar reconstructions were obtained through the head and neck. Coronal and sagittal MIP images were performed. The CT study is performed according to ALARA (as low as reasonably achievable) or ALARA/IMAGE GENTLY, with automatic adjustment of mA and/or kV according to patient size. Performed on: 12/14/2023 at 6:06 AM COMPARISON: Head CT without contrast performed on 12/14/2023 FINDINGS: CTA NECK: AORTA: The aortic arch is well imaged and demonstrates a common origin of the left common carotid artery and right brachiocephalic artery, a normal developmental variant. The origins of the left subclavian a rtery, left common carotid artery and innominate artery are patent. VERTEBRAL ARTERIES: The LEFT vertebral artery is patent and is small and caliber throughout its course. There is no evide nce of dissection or significant focal stenosis. The RIGHT vertebral artery is normal in caliber and contour without evidence of dissection or signifi cant stenosis. The right vertebral artery is dominant. CAROTID ARTERIES: The LEFT common carotid artery is unremarkable. There is no evidence of stenosis, dissection or occlu padilla The carotid bulb demonstrates mild calcified atherosclerotic plaque resulting in stenosis of t he proximal left ICA measuring less than 50%. The LEFT internal carotid artery is normal in caliber a nd contour without evidence of significant stenosis, dissection or occlusion. The LEFT external carot id artery is unremarkable. The RIGHT common carotid artery is unremarkable. There is no evidence of stenosis, dissection or occl usion. The carotid bulb demonstrates mild calcified atherosclerotic plaque resulting in stenosis of t he proximal right ICA measuring less than 50%. The RIGHT internal carotid artery is unremarkable. The re is no evidence of stenosis, dissection or occlusion. The RIGHT external carotid artery is unremark able. CTA HEAD: LEFT: INTERNAL CAROTID ARTERY: The distal internal carotid artery is unremarkable. There are mild atherosclerotic calcifications mauro ng the cavernous left ICA. ANTERIOR CEREBRAL ARTERY: The A1 segment is normal in caliber and contour. The A2 segment is normal i n caliber and contour. The region of the anterior communicating artery is unremarkable. MIDDLE CEREBRAL ARTERY: The M1 segment is normal in caliber and contour. The M2 branches are normal i n caliber and contour. POSTERIOR CEREBRAL ARTERY: The P1 segment is normal in caliber and contour. The P2 segment is normal in caliber and contour. The left posterior communicating artery is patent. VERTEBRAL ARTERY: The intradural left vertebral artery is patent but small in caliber. RIGHT: INTERNAL CAROTID ARTERY: The distal internal carotid artery is unremarkable. There are mild atherosclerotic calcifications mauro ng the cavernous right ICA. ANTERIOR CEREBRAL ARTERY: The A1 segment is normal in caliber and contour. The A2 segment is normal i n caliber and contour. MIDDLE CEREBRAL ARTERY: The M1 segment is normal in caliber and contour. The M2 branches are normal i n caliber and contour. POSTERIOR CEREBRAL ARTERY: The P1 segment is normal in caliber and contour. The P2 segment is normal in caliber and contour. The right posterior communicating artery is hypoplastic versus aplastic. VERTEBRAL ARTERY: The intradural right vertebral artery is normal in caliber and contour. BASILAR ARTERY: The basilar artery is normal in caliber and contour. DURAL VENOUS SINUSES: The dural venous sinuses are patent. NON-ANGIOGRAPHIC FINDINGS: The lung apices are clear. The thyroid gland is normal in size and configuration. There are mild dege nerative changes of the mid to lower cervical spine most prominently at C5-C6 and C6-C7. There is str aightening of the normal cervical lordosis which may be related to patient positioning, degenerative changes and/or muscle spasm. There is mild mucosal thickening of the right maxillary sinus. The orbit al contents are within normal limits. The mastoid air cells and middle ear cavities are clear. There is a left subclavian bipolar pacemaker. IMPRESSION: CTA NECK: 1. There is no evidence of significant stenosis involving the internal carotid arteries as per the NASCET criteria. 2. Common origin of the left common carotid artery and right brachiocephalic artery, a normal devel opmental variant. 3. The left vertebral artery is small and caliber throughout its course. The right vertebral artery is dominant. 4. Mild degenerative changes of the mid to lower cervical spine most prominently at C5-C6 and C6-C7 . CTA HEAD: Normal intracranial CTA. There is no evidence of large vessel occlusion, significant stenosis, aneury sm or other vascular malformation. Electronically signed by: Ericka Alex DO 12/14/2023 06:58 AM CDT RP Due to temporary technical issues with the PACS/Fluency reporting system, reports are being signed by the in house radiologist without review as a courtesy to ensure prompt reporting. The interpreting r adiologist is fully responsible for the content of the report.
--- NOTE | 2023-12-17 11:54 | RAD REPORT ---
EXAM DESCRIPTION: CT - Head Brain Wo Cont - 12/14/2023 7:05 am CLINICAL HISTORY: The patient is 73 years old and is Male; DIZZINESS TECHNIQUE: Axial computed tomography images of the head/brain without intravenous contrast. Sagitt al and coronal reformatted images were created and reviewed. This CT exam was performed using one o r more of the following dose reduction techniques: automated exposure control, adjustment of the mA and/or kV according to patient size, and/or use of iterative reconstruction technique. COMPARISON: No relevant prior studies available. FINDINGS: Brain: Unremarkable. No hemorrhage. No significant white matter disease. No edema. Ventricles: Unremarkable. No ventriculomegaly. Bones/joints: Unremarkable. No acute skull fracture. Soft tissues: Unremarkable. Sinuses: Unremarkable as visualized. No acute sinusitis. Mastoid air cells: No significant mastoid fluid. IMPRESSION: No acute intracranial findings. No hemorrhage. Electronically signed by: Lily Wolfe MD 12/14/2023 06:35 AM CDT RP ND Due to temporary technical issues with the PACS/Fluency reporting system, reports are being signed by the in house radiologist without review as a courtesy to ensure prompt reporting. The interpreting r adiologist is fully responsible for the content of the report.
== END 2023-12-14 08:53 | disposition home or self-care (01) ==
LOC: ER 04:18
DX: R42 Dizziness and giddiness (principal); I10 Essential (primary) hypertension; Z95.0 Presence of cardiac pacemaker; F17.210 Nicotine dependence, cigarettes, uncomplicated
CPT/HCPCS: 93005; 85025; 80048; 36415; 83735; 85610; 80076; 84484; 83880; 70450; 70496; 70498; 71045; 99285; Q9967